=== PATIENT | male | born 1955 | race Caucasian/White ===

== ENCOUNTER → 2017-01-03 | Outpatient (CLI) | payer MEDICARE, OTHER ==
[~2017-01-03] MED LIST: ALPR.5T PO; CHOL200035 PO; CIPR500T78 PO; LISI10TA PO; MELO-195 PO; METO25TA PO; THYR60TA4 PO
--- NOTE | 2017-01-03 09:55 | Diagnostic Imaging Report ---
EXAMINATION: DEXA scan. INDICATION: Osteopenia. TECHNIQUE: Bone mineral density estimated based on dual energy radiography over the lumbar spine and femoral necks, was performed. FINDINGS: The lumbar spine could not be measured due to fusion hardware. The T score over the left femoral neck is -1.1 and on the right side is -1.4. The mean is -1.2 and this is similar to the 2012 exam measurements. IMPRESSION: Osteopenia. Dictated by: Dictated on workstation # [id number]
== END ==
LOC: RAD 08:12
DX: M85.812 Other specified disorders of bone density and structure, left shoulder (principal)
CPT/HCPCS: 77080

== ENCOUNTER → 2017-02-08 | Outpatient (CLI) | payer MEDICARE, OTHER ==
[~2017-02-08] VITALS: Ht 175.3 cm; Wt 96.6 kg
[~2017-02-08] MED LIST changes: +ZOLEDRONATE 5 MG/100 ML (RECLAST) BTL IV ONE
[2017-02-08 14:07] VITALS: BP 135/84
== END ==
LOC: SDC 13:03
DX: M81.0 Age-related osteoporosis without current pathological fracture (principal)
CPT/HCPCS: 96365

== ENCOUNTER → 2017-03-21 | Outpatient (CLI) | payer OTHER, MEDICARE ==
[~2017-03-21] MED LIST changes: -ZOLEDRONATE 5 MG/100 ML (RECLAST) BTL IV ONE
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
== END ==
LOC: RAD 08:14
PROVIDERS: ATTEND Nurse Practitioner Family
DX: M50.222 Other cervical disc displacement at C5-C6 level (principal); M47.812 Spondylosis without myelopathy or radiculopathy, cervical region; M48.02 Spinal stenosis, cervical region; Z98.1 Arthrodesis status
CPT/HCPCS: 72141

== ENCOUNTER → 2017-03-28 | Outpatient (CLI) | payer MEDICARE, OTHER ==
--- NOTE | 2017-03-28 10:15 | Diagnostic Imaging Report ---
INDICATION: Cough and weight loss. COMPARISON: None. FINDINGS: Two views of the chest are obtained. Heart size is normal. The pulmonary vessels appear unremarkable. There is no pneumothorax mediastinal widening or pleural fluid demonstrated. The lungs are clear. There are postoperative changes in the cervical spine. IMPRESSION: No radiographic evidence of an acute cardiopulmonary abnormality. Dictated by: Dictated on workstation # [id number]
== END ==
LOC: RAD 08:52
DX: R63.4 Abnormal weight loss (principal); R05 Cough
CPT/HCPCS: 71020

== ENCOUNTER → 2017-03-29 | Outpatient (CLI) | payer OTHER, MEDICARE ==
--- NOTE | 2017-03-29 16:40 | Diagnostic Imaging Report ---
PROCEDURE: CT cervical spine without contrast. TECHNIQUE: Multiple contiguous axial images were obtained through the cervical spine without the use of intravenous contrast. Sagittal and coronal reformations were then performed. INDICATION: Followup cervical fusion. FINDINGS: Sagittal and coronal reformatted images show good alignment of the vertebral bodies. Body heights are well-maintained throughout the cervical region. There is anterior plate fusing at C6-C7 level. The bone screws and plate appear intact. No evidence of hardware loosening. Interbody graft is present. There does appear to be at least partial bony fusion of the vertebral bodies. There is mild narrowing of the C5-C6 disc space. Facets show good alignment. Atlanto-axial joint is in good alignment. IMPRESSION: 1. Anterior cervical fusion with interbody bone graft at C6-C7. Hardware appears intact. There does appear to be at least partial solid bony fusion. Dictated by: Dictated on workstation # [id number]
== END ==
LOC: RAD 15:50
PROVIDERS: ATTEND Orthopaedic Surgery Orthopaedic Surgery of the Spine
DX: Z98.1 Arthrodesis status (principal); M54.2 Cervicalgia
CPT/HCPCS: 72125

== ENCOUNTER → 2017-03-29 | Outpatient (CLI) | payer OTHER, MEDICARE ==
--- NOTE | 2017-03-29 17:03 | Diagnostic Imaging Report ---
PROCEDURE: MRI lumbar spine. TECHNIQUE: Multiplanar, multisequence MRI of the lumbar spine was performed without contrast. INDICATION: Chronic back pain. History of multiple surgeries with fusion and laminectomy at the lumbar spine. COMPARISON: 09/13/2015. FINDINGS: Anterior fusion L3 through L5. Alignment good. Body heights are well maintained. The marrow signal appears normal. The facets show good alignment. There is decompressive laminectomy from L3 through S1 which shows no evidence of central canal stenosis. No evidence of recurrent disc herniations. No significant encroachment noted upon the lateral recess or neural foramen. L2-L3: There is considerable facet and ligamentous hypertrophy with narrowing of the disc space with desiccation and broad-based disc bulge. This is causing moderate to moderately severe encroachment upon the lateral recesses bilaterally. There is no focal disc herniation or extruded component. L1-L2: Disc shows normal contour. Facets show mild hypertrophy. No significant encroachment noted. The conus medullaris appears normal. The surrounding soft tissues appear normal. IMPRESSION: 1. Postoperative residue from L3 through S1 with anterior fusion and posterior laminectomy. Overall appearance is unchanged. 2. There is progressive facet and ligamentous hypertrophy at L2-L3 with associated broad-based disc bulge causing [id number] encroachment upon the lateral recesses now. Dictated by: Dictated on workstation # [id number]
== END ==
LOC: RAD 15:55
DX: M51.26 Other intervertebral disc displacement, lumbar region (principal); Z98.1 Arthrodesis status
CPT/HCPCS: 72148

== ENCOUNTER → 2017-11-28 | Outpatient (CLI) | payer MEDICARE, OTHER ==
--- NOTE | 2017-11-28 09:16 | Diagnostic Imaging Report ---
PROCEDURE: CT cervical spine without contrast. TECHNIQUE: Multiple contiguous axial images were obtained through the cervical spine without the use of intravenous contrast. Sagittal and coronal reformations were then performed. INDICATION: Numbness over the entire body. Patient has prior history of cervical spine surgeries. Comparison is made with prior CT of the cervical spine performed on 03/29/2017. Since prior study patient has had further cervical spine surgery. There is now postop changes of ACDF with anterior plates and screws extending from C5 through C7. There appears to be a separate C5-C6 plate and C6-C7 plate. No hardware fracture or loosening is identified. There is straightening. Vertebral body heights are maintained. No fractures are seen. Bony canal appears to be patent. There is neuroforaminal stenosis due to uncovertebral joint degenerative change at the C6-7 level, greatest on the left. All other levels are unremarkable. The odontoid is intact IMPRESSION: Postop changes ACDF C5 through C7. There is bilateral neuroforaminal stenosis C6-C7 level, greatest on the left. No central canal stenosis is seen. No acute bony abnormalities detected. No hardware fracture or loosening is identified. Dictated by: Dictated on workstation # [id number]
--- NOTE | 2017-11-28 09:34 | Diagnostic Imaging Report ---
PROCEDURE: MR imaging cervical spine without contrast. TECHNIQUE: Multiplanar, multisequence MR imaging of the cervical spine was performed without contrast. INDICATION: Neck pain with bilateral arm and hand numbness. Patient underwent cervical spine surgery six months ago as well as in 2014. Comparison is made with prior MRI of the cervical spine on 03/21/2017. Curvature and alignment of the cervical spine is normal. There are postop changes of ACDF with anterior plate and screws extending from C5 through C7. Hardware does produce moderate amount of artifact. The marrow signal intensity is unremarkable. The signal intensity throughout cervical cord is normal. Previously noted large central disc extrusion at the C5-C6 level is no longer appreciated. C2-C3: No definite central canal or neural foraminal stenosis is detected. C3-C4: A very mild central canal narrowing is seen, similar to prior study. Neural foramina are patent. C4-C5: Very mild central canal narrowing is seen. Neural foramina are patent. No disc protrusion is identified. C5-C6: Previously noted disc is no longer protruding. There is mild central canal narrowing. Neural foramina are patent. C6-C7: Uncovertebral joint degenerative change does result in neural foraminal narrowing on the left. There appears to be mild neural foramen narrowing on the right. No significant central canal narrowing is seen. C7-T1: Unremarkable. IMPRESSION: Postop changes ACDF C5 through C7. Previously noted large disc protrusion/extrusion at C5-C6 is no longer present. There is some mild generalized cervical spinal canal narrowing, similar to the examination from March 2017. There also appears to be neural foraminal narrowing at C6-C7 level, as described. Dictated by: Dictated on workstation # [id number]
== END ==
LOC: RAD 08:05
PROVIDERS: ATTEND Physician Assistant
DX: M48.02 Spinal stenosis, cervical region (principal); M47.812 Spondylosis without myelopathy or radiculopathy, cervical region; Z98.1 Arthrodesis status
CPT/HCPCS: 72125; 72141

== ENCOUNTER 2018-03-23 16:09 | Emergency (ER) | payer MEDICARE, OTHER ==
[~2018-03-23] VITALS: Ht 175.3 cm; Wt 96.2 kg
--- OUTSIDE RECORDS SUMMARY | 2018-03-23 16:14 | XMS REPORT | Continuity of Care Document ---
Author Author [facility] Organization [facility] Address Unknown Phone Unavailable Allergies Active Description Code Type Severity Reaction Onset Reported/Identified Relationship to Patient Clinical Status Yes No Known Drug Allergies [id number] Drug Allergy Unknown N/A 12/31/2011 Medications There is no data. Problems Date Dx Coded Attending Type Code Diagnosis Diagnosed By 12/31/2011 Ot 244.9 HYPOTHYROIDISM NOS 12/31/2011 Ot 401.9 HYPERTENSION NOS 12/31/2011 Ot V76.51 SCREEN MAL NEOP-COLON 02/07/2012 Ot 401.9 HYPERTENSION NOS 02/07/2012 Ot 782.0 SKIN SENSATION DISTURB 11/29/2013 FER MONET, ABILIO Gutierrez Ot 599.0 URIN TRACT INFECTION NOS 11/29/2013 FER MONET, ABILIO Gutierrez Ot 788.20 RETENTION OF URINE NOS 11/29/2013 FER MONET, ABILIO Gutierrez Ot 789.09 ABDOMINAL PAIN, OTHER SPECIFIED SITE 09/15/2014 CELINA MONET, VAIBHAV Hess Ot 723.0 09/15/2014 CELINA MONET, VAIBHAV Hess Ot 721.2 09/17/2014 CELINA MONET, VAIBHAV Hess Ot 723.0 09/17/2014 CELINA MONET, VAIBHAV Hess Ot 721.2 12/31/2014 LYNNE MONET, GALILEA Jha Ot 722.93 05/04/2015 Ot 715.31 05/04/2015 Ot 733.90 05/04/2015 Ot V58.69 08/05/2015 Ot 733.90 08/05/2015 Ot V58.69 08/05/2015 Ot V72.84 08/05/2015 JUDAH MONET, BENJI Jha Ot 596.54 08/05/2015 CELINA MONET, VAIBHAV Hess Ot 723.0 08/05/2015 VAIBHAV PATRICK MD Ot 721.2 08/05/2015 VAIBHAV SERRANO DO Ot 723.0 08/05/2015 LYNNE MONET, GALILEA Jha Ot 722.93 08/05/2015 SAEID RESTREPO INVENTORY ACCOUNTANT Ot R10.32 08/11/2015 SAEID RESTREPO INVENTORY ACCOUNTANT Ot R41.0 08/11/2015 SAEID RESTREPO INVENTORY ACCOUNTANT Ot R51 08/11/2015 SAEID RESTREPO INVENTORY ACCOUNTANT Ot S09.90XA 08/11/2015 SAEID RESTREPO INVENTORY ACCOUNTANT Ot S19.9XXA 08/11/2015 SAEID RESTREPO INVENTORY ACCOUNTANT Ot V99.XXXA 08/19/2015 SAEID RESTREPO INVENTORY ACCOUNTANT Ot R10.32 09/08/2015 SAEID RESTREPO INVENTORY ACCOUNTANT Ot R10.32 09/13/2015 SAEID RESTREPO INVENTORY ACCOUNTANT Ot R41.0 09/13/2015 SAEID RESTREPO INVENTORY ACCOUNTANT Ot R51 09/13/2015 SAEID RESTREPO INVENTORY ACCOUNTANT Ot S09.90XA 09/13/2015 SAEID RESTREPO INVENTORY ACCOUNTANT Ot S19.9XXA 09/13/2015 SAEID RESTREPO APRN Ot V99.XXXA 09/13/2015 Ot 733.90 09/13/2015 Ot V58.69 09/13/2015 Ot V72.84 09/13/2015 JUDAH MONET, BENJI Jha Ot 596.54 09/13/2015 CELINA MONET, VAIBHAV Hess Ot 723.0 09/13/2015 CELINA MONET, VAIBHAV Hess Ot 721.2 09/13/2015 MAGGIE LU, VAIBHAV Sterling Ot 723.0 09/13/2015 LYNNE MONET, GALILEA Jha Ot 722.93 09/13/2015 SAEID RESTREPO Man INVENTORY ACCOUNTANT Ot R10.32 09/13/2015 SAEID RESTREPO INVENTORY ACCOUNTANT Ot R41.0 09/13/2015 SAEID RESTREPO Man INVENTORY ACCOUNTANT Ot R51 09/13/2015 SAEID RESTREPO Man INVENTORY ACCOUNTANT Ot S09.90XA 09/13/2015 SAEID RESTREPO Man INVENTORY ACCOUNTANT Ot S19.9XXA 09/13/2015 SAEID RESTREPO INVENTORY ACCOUNTANT Ot V99.XXXA 10/18/2015 KHANH MONET, IDALMIS James Ot M48.06 10/26/2015 KHANH MONET, IDALMIS James Ot M48.06 10/27/2015 KAYE GINNADEN N INVENTORY ACCOUNTANT Ot R41.0 10/27/2015 SAEID RESTREPO INVENTORY ACCOUNTANT Ot R51 10/27/2015 SAEID RESTREPO APRN Ot S09.90XA 10/27/2015 SAEID RESTREPO APRN Ot S19.9XXA 10/27/2015 SAEID RESTREPO APRN Ot V99.XXXA 11/08/2015 SAEID RESTREPO APRN Ot R41.0 11/08/2015 SAEID RESTREPO APRN Ot R51 11/08/2015 SAEID RESTREPO APRN Ot S09.90XA 11/08/2015 SAEID RESTREPO APRN Ot S19.9XXA 11/08/2015 SAEID RESTREPO APRN Ot V99.XXXA 04/17/2016 Ot 733.90 BONE CARTILAGE DIS NOS 04/17/2016 Ot V58.69 OTH MED,LT, CURRENT USE 12/27/2016 SAEID RESTREPO APRN Ot R41.0 DISORIENTATION, UNSPECIFIED 12/27/2016 SAEID RESTREPO APRN Ot R51 HEADACHE 12/27/2016 SAEID RESTREPO APRN Ot S09.90XA UNSPECIFIED INJURY OF HEAD, INITIAL ENCO 12/27/2016 SAEID RESTREPO APRN Ot S19.9XXA UNSPECIFIED INJURY OF NECK, INITIAL ENCO 12/27/2016 SAEID RESTREPO APRN Ot V99.XXXA UNSPECIFIED TRANSPORT ACCIDENT, INITIAL 12/27/2016 KHANH MONET, IDALMIS James Ot M48.06 SPINAL STENOSIS, LUMBAR REGION 01/03/2017 Ot 733.90 BONE CARTILAGE DIS NOS 01/03/2017 Ot V58.69 OTH MED,LT, CURRENT USE 01/03/2017 Ot V72.84 EXAM PRE- OPERATIVE NOS 01/03/2017 JUDAH MONET, BENJI Jha Ot 596.54 NEUROGENIC BLADDER, NOT OTHERWISE SPECIF 01/03/2017 CELINA MONET, VAIBHAV Hess Ot 723.0 CERVICAL SPINAL STENOSIS 01/03/2017 CELINA MONET, VAIBHAV Hess Ot 721.2 THORACIC SPONDYLOSIS 01/03/2017 VAIBHAV SERRANO DO Ot 723.0 CERVICAL SPINAL STENOSIS 01/03/2017 LYNNE MONET, GALILEA Jha Ot 722.93 DISC DIS NEC/NOS-LUMBAR 01/03/2017 SAEID RESTREPO INVENTORY ACCOUNTANT Ot R10.32 LEFT LOWER QUADRANT PAIN 01/03/2017 SAEID RESTREPO INVENTORY ACCOUNTANT Ot R41.0 DISORIENTATION, UNSPECIFIED 01/03/2017 SAEID RESTREPO APRN Ot R51 HEADACHE 01/03/2017 SAEID RESTREPO APRN Ot S09.90XA UNSPECIFIED INJURY OF HEAD, INITIAL ENCO 01/03/2017 SAEID RESTREPO INVENTORY ACCOUNTANT Ot S19.9XXA UNSPECIFIED INJURY OF NECK, INITIAL ENCO 01/03/2017 SAEID RESTREPO INVENTORY ACCOUNTANT Ot V99.XXXA UNSPECIFIED TRANSPORT ACCIDENT, INITIAL 01/03/2017 KHANH MONET, IDALMIS James Ot M48.06 SPINAL STENOSIS, LUMBAR REGION 01/25/2017 JILLIAN MONET, LINDA Galeano Ot M85.812 OT DISRD OF BONE DENSITY AND STRUCTURE, 02/17/2017 JILLIAN MONET, LINDA Galeano Ot M81.0 AGE-RELATED OSTEOPOROSIS W/O CURRENT PAT 03/07/2017 LINDA WALSH MD Ot M81.0 AGE-RELATED OSTEOPOROSIS W/O CURRENT PAT 03/12/2017 JILLIAN MONET, LINDA Galeano Ot M81.0 AGE-RELATED OSTEOPOROSIS W/O CURRENT PAT 03/21/2017 SAEID RESTREPO INVENTORY ACCOUNTANT Ot R41.0 DISORIENTATION, UNSPECIFIED 03/21/2017 SAEID RESTREPO APRN Ot R51 HEADACHE 03/21/2017 SAEID RESTREPO APRN Ot S09.90XA UNSPECIFIED INJURY OF HEAD, INITIAL ENCO 03/21/2017 SAEID RESTREPO INVENTORY ACCOUNTANT Ot S19.9XXA UNSPECIFIED INJURY OF NECK, INITIAL ENCO 03/21/2017 SAEID RESTREPO APRN Ot V99.XXXA UNSPECIFIED TRANSPORT ACCIDENT, INITIAL 03/21/2017 KHANH MONET, IDALMIS James Ot M48.06 SPINAL STENOSIS, LUMBAR REGION 03/21/2017 JILLIAN MONET, LINDA Galeano Ot M85.812 OT DISRD OF BONE DENSITY AND STRUCTURE, 03/21/2017 JILLIAN MONET, LINDA Galeano Ot M81.0 AGE-RELATED OSTEOPOROSIS W/O CURRENT PAT 03/26/2017 SAEID RESTREPO APRN Ot M47.812 SPONDYLOSIS W/O MYELOPATHY OR RADICULOPA 03/26/2017 SAEID RESTREPO INVENTORY ACCOUNTANT Ot M48.02 SPINAL STENOSIS, CERVICAL REGION 03/26/2017 SAEID RESTREPO INVENTORY ACCOUNTANT Ot M50.222 OTHER CERVICAL DISC DISPLACEMENT AT C5-C 03/26/2017 SAEID RESTREPO APRN Ot Z98.1 ARTHRODESIS STATUS 04/02/2017 IDALMIS CASSIDY MD Ot M54.2 CERVICALGIA 04/02/2017 IDALMIS CASSIDY MD Ot Z98.1 ARTHRODESIS STATUS 04/02/2017 IDALMIS CASSIDY MD Ot M54.2 CERVICALGIA 04/02/2017 IDALMIS CASSIDY MD Ot Z98.1 ARTHRODESIS STATUS 04/02/2017 JILLIAN MONET, LINDA D Ot R05 COUGH 04/02/2017 JILLIAN MONET, LINDA D Ot R63.4 ABNORMAL WEIGHT LOSS 04/02/2017 IDALMIS CASSIDY MD Ot M54.2 CERVICALGIA 04/02/2017 IDALMIS CASSIDY MD Ot Z98.1 ARTHRODESIS STATUS 04/26/2017 JILLIAN MONET, LINDA D Ot R05 COUGH 04/26/2017 JILLIAN MONET, LINDA D Ot R63.4 ABNORMAL WEIGHT LOSS 04/27/2017 JILLIAN MONET, LINDA D Ot R05 COUGH 04/27/2017 JILLIAN MONET, LINDA D Ot R63.4 ABNORMAL WEIGHT LOSS 11/21/2017 IDALMIS CASSIDY MD Ot M54.2 CERVICALGIA 11/21/2017 IDALMIS CASSIDY MD Ot Z98.1 ARTHRODESIS STATUS 11/21/2017 JILLIAN MONET, LINDA Waleska Ot M51.26 OTHER INTERVERTEBRAL DISC DISPLACEMENT, 11/21/2017 LINDA WALSH MD Ot Z98.1 ARTHRODESIS STATUS 11/21/2017 SAEID RESTREPO APRN Ot M47.812 SPONDYLOSIS W/O MYELOPATHY OR RADICULOPA 11/21/2017 SAEID RESTREPO INVENTORY ACCOUNTANT Ot M48.02 SPINAL STENOSIS, CERVICAL REGION 11/21/2017 SAEID RESTREPO INVENTORY ACCOUNTANT Ot M50.222 OTHER CERVICAL DISC DISPLACEMENT AT C5-C 11/21/2017 SAEID RESTREPO INVENTORY ACCOUNTANT Ot Z98.1 ARTHRODESIS STATUS 11/29/2017 JEN ALVAREZ Ot M47.812 SPONDYLOSIS W/O MYELOPATHY OR RADICULOPA 11/29/2017 JEN ALVAREZ Ot M48.02 SPINAL STENOSIS, CERVICAL REGION 11/29/2017 JANETH NOONAN JEN Sterling Ot Z98.1 ARTHRODESIS STATUS 12/04/2017 JANETH NOONAN JEN Sterling Ot M47.812 SPONDYLOSIS W/O MYELOPATHY OR RADICULOPA 12/04/2017 JANETH NOONAN JEN Sterling Ot M48.02 SPINAL STENOSIS, CERVICAL REGION 12/04/2017 VOLIONEL NOONAN JEN Asher Ot Z98.1 ARTHRODESIS STATUS 12/19/2017 SAEID RESTREPO INVENTORY ACCOUNTANT Ot M47.812 SPONDYLOSIS W/O MYELOPATHY OR RADICULOPA 12/19/2017 SAEID RESTREPO INVENTORY ACCOUNTANT Ot M48.02 SPINAL STENOSIS, CERVICAL REGION 12/19/2017 SAEID RESTREPO INVENTORY ACCOUNTANT Ot M50.222 OTHER CERVICAL DISC DISPLACEMENT AT C5-C 12/19/2017 SAEID RESTREPO INVENTORY ACCOUNTANT Ot Z98.1 ARTHRODESIS STATUS 12/19/2017 KHANH MONET, IDALMIS James Ot M54.2 CERVICALGIA 12/19/2017 KHANH MONET, IDALMIS James Ot Z98.1 ARTHRODESIS STATUS 12/23/2017 JANETH NOONAN JEN Sterling Ot M47.812 SPONDYLOSIS W/O MYELOPATHY OR RADICULOPA 12/23/2017 JANETH NOONAN JEN Asher Ot M48.02 SPINAL STENOSIS, CERVICAL REGION 12/23/2017 JANETH NOONAN JEN Asher Ot Z98.1 ARTHRODESIS STATUS 12/24/2017 JANETH NOONAN JEN Sterling Ot M47.812 SPONDYLOSIS W/O MYELOPATHY OR RADICULOPA 12/24/2017 JANETH NOONAN JEN Asher Ot M48.02 SPINAL STENOSIS, CERVICAL REGION 12/24/2017 JANETH NOONAN JEN Sterling Ot Z98.1 ARTHRODESIS STATUS 01/13/2018 JILLIAN MONET, LINDA Galeano Ot L03.113 CELLULITIS OF RIGHT UPPER LIMB 01/13/2018 JILLIAN MONET, LINDA Galeano Ot T81.31XA DISRUPTION OF EXTERNAL OPERATION (SURGIC 01/15/2018 JILLIAN MONET, LINDA Galeano Ot L03.113 CELLULITIS OF RIGHT UPPER LIMB 01/15/2018 JILLIAN MONET, LINDA Galeano Ot T81.31XA DISRUPTION OF EXTERNAL OPERATION (SURGIC 01/31/2018 JILLIAN MONET, LINDA Galeano Ot L03.113 CELLULITIS OF RIGHT UPPER LIMB 01/31/2018 LINDA WALSH MD Ot T81.31XA DISRUPTION OF EXTERNAL OPERATION (SURGIC Procedures There is no data. Results Test Result Range Bacteria identification in isolate by anaerobe culture - 01/08/18 00:00 Bacteria identification in isolate by anaerobe culture NOANA NRG Gram stain microscopy - 01/08/18 00:00 Gram stain microscopy Moderate # gram positive cocci resembling Staph NRG Bacteria identification in wound by culture - 01/08/18 00:00 Bacteria identification in wound by culture [id number] NRG FREE TEXT EXTERNAL SENSITIVITY REPORTED 01/10/18 9:55 NRG QUANTITY OF GROWTH Isolated NRG MRSA AGAR MRSA isolated (Screening test for MRSA is positive) NRG CALL POSITIVES (F1 HELP) CALLED TO [place] 01/09 14:10 NRG Bacterial susceptibility panel - 01/08/18 00:00 Oxacillin susceptibility test by minimum inhibitory concentration > = NRG Gentamicin susceptibility test by minimum inhibitory concentration < = NRG Clindamycin susceptibility test by minimum inhibitory concentration <= NRG Erythromycin susceptibility test by minimum inhibitory concentration >= NRG Trimethoprim/sulfamethoxazole susceptibility test by minimum inhibitoryconcentration S NRG Vancomycin susceptibility test by minimum inhibitory concentration 1 NRG Levofloxacin susceptibility test by minimum inhibitory concentration 4 NRG Rifampin susceptibility test by minimum inhibitory concentration <= NRG Tetracycline susceptibility test by minimum inhibitory concentration <= NRG Ciprofloxacin susceptibility test by minimum inhibitory concentration R NRG Bacterial susceptibility panel - 01/08/18 00:00 Gentamicin susceptibility test by minimum inhibitory concentration < = NRG Trimethoprim/sulfamethoxazole susceptibility test by minimum inhibitoryconcentration <= NRG Tobramycin susceptibility test by minimum inhibitory concentration < = NRG Ceftriaxone susceptibility test by minimum inhibitory concentration 8 NRG Piperacillin/tazobactam susceptibility test by minimum inhibitory concentration <= NRG Ciprofloxacin susceptibility test by minimum inhibitory concentration <= NRG Meropenem susceptibility test by minimum inhibitory concentration < = NRG Encounters ACCT No. Visit Date/Time Discharge Status Pt. Type Provider Facility Loc./Unit Complaint [id number] 01/08/2018 11:49:00 01/08/2018 23:59:59 CLS Outpatient LINDA WALSH MD [facility] LABNPT WOUND C S, GRAM STAIN [id number] 11/28/2017 08:05:00 11/28/2017 23:59:59 CLS Outpatient JEN ALVAREZ [facility] RAD BACK PAIN [id number] 03/29/2017 15:55:00 03/29/2017 23:59:59 CLS Outpatient LINDA WALSH MD [facility] RAD LOW BACK PAIN [id number] 03/29/2017 15:50:00 03/29/2017 23:59:59 CLS Outpatient IDALMIS CASSIDY MD [facility] RAD CERVICALGIA [id number] 03/28/2017 08:52:00 03/28/2017 23:59:59 CLS Outpatient LINDA WALSH MD [facility] RAD R63.4 [id number] 03/21/2017 08:14:00 03/21/2017 23:59:59 CLS Outpatient SAEID RESTREPO APRN [facility] RAD NECK PAIN [id number] 02/08/2017 13:03:00 02/08/2017 23:59:59 CLS Outpatient LINDA WALSH MD [facility] SDC OSTEOPOROSIS [id number] 01/03/2017 08:12:00 01/03/2017 23:59:59 CLS Outpatient LINDA WALSH MD [facility] RAD M85.812 [id number] 09/13/2015 09:38:00 09/13/2015 23:59:59 CLS Outpatient IDALMIS CASSIDY MD [facility] RAD LUMBAR STENOSIS [id number] 08/05/2015 14:27:00 08/05/2015 23:59:59 CLS Outpatient SAEID RESTREPO APRN [facility] RAD NECK PAIN,CONFUSION [id number] 07/18/2015 09:39:00 07/18/2015 23:59:59 CLS Outpatient SAEID RESTREPO INVENTORY ACCOUNTANT [facility] RAD ABD PAIN [id number] 09/21/2014 09:05:00 09/21/2014 23:59:59 CLS Outpatient GALILEA BATISTA MD [facility] RAD RLO STENOSIS [id number] 09/16/2014 09:30:00 09/16/2014 23:59:59 CLS Outpatient HEARNDON DO, VAIBHAV L [facility] RAD CERVICAL RADICULOPATHY [id number] 11/29/2013 10:40:00 11/29/2013 14:19:00 DIS Emergency FER MONET, ABILIO Gutierrez [facility] ER L RIB PAIN [id number] 07/11/2013 15:14:00 07/11/2013 23:59:59 CLS Emergency [id number] 07/03/2013 08:07:00 07/03/2013 23:59:59 CLS Outpatient VAIBHAV PATRICK MD [facility] RAD THORACIC BACK PAIN [id number] 06/05/2013 08:17:00 06/05/2013 23:59:59 CLS Outpatient VAIBHAV PATRICK MD [facility] RAD NECK PAIN [id number] 02/16/2013 12:26:00 02/16/2013 23:59:59 CLS Outpatient JUDAH MONET, BENJI Jha [facility] RAD NEUROGENIC BLADDER [id number] 05/04/2015 12:25:00 Document Registration [id number] 02/07/2012 09:20:00 Document Registration [id number] 12/31/2011 06:37:00 Document Registration [id number] 12/26/2011 09:55:00 Document Registration [id number] 09/04/2010 10:23:00 Document Registration [email or web address] 09/21/2014 09:06:57 ACT Document Registration
--- OUTSIDE RECORDS SUMMARY | 2018-03-23 16:14 | XMS REPORT | Clinical Summary ---
Author Author [facility] Organization [facility] Address Unknown Phone Unavailable Care Team Providers Care Healthcare Management Name Role Phone Fernando Yen MD Unavailable Ruslan Mcguire DO Unavailable Jorje Martin MD PCP Lorna Macedo MD Unavailable Source Comments Some departments are not documenting in the electronic medical record. If you do not see the information that you expected, contact Release of Information in the Health Information Management department at [phone] for further assistance in locating additional records.[facility] Allergies No Known Allergies Current Medications Prescription Sig. Disp. Refills Start End Date Status Date benazepril (LOTENSIN) 20 Take 20 mg by mouth twice Active mg tablet daily. CALCIUM PO Take 1,000 mg by mouth Active daily. cholecalciferol (Vitamin Take 5,000 Units by mouth Active D3) (VITAMIN D-3) 1,000 daily. units tablet ALPRAZolam (XANAX) 0.5 mg Take 0.5 mg by mouth at Active tablet bedtime as needed. TESTOSTERONE (BULK) MISC Use as directed. Every 3 Active Weeks MULTIVITAMIN PO Take 1 Cap by mouth Active daily. VITAMIN B COMPLEX-100 IJ Inject to area(s) as Active directed. alfuzosin(+) (UROXATRAL) Take 1 Tab by mouth daily 30 Tab 6 02/12/20 Active 10 mg tabletIndications: after breakfast. 14 Neurogenic bladder, NOS gabapentin (NEURONTIN) Take 3 Caps by mouth 60 Cap 5 05/27/20 Active 300 mg capsule three times daily. 14 HYDROcodone/acetaminophen Take 1 Tab by mouth every Active (NORCO; VICODIN) 5-325 mg 4 hours as needed. tablet finasteride (PROSCAR) 5 Take 1 Tab by mouth 90 Tab 0 10/13/19 Active mg tablet daily. 15 baclofen (LIORESAL) 10 mg Take 10 mg by mouth three Active tablet times daily. docusate (COLACE) 100 mg Take 1 Cap by mouth twice 30 Cap 3 04/19/20 Active capsuleIndications: daily. 15 Constipation, unspecified constipation type sildenafil(+) (VIAGRA) Take 1 Tab by mouth as 6 Tab 0 04/19/20 Active 100 mg tabletIndications: Needed for Erectile 15 Erectile dysfunction, dysfunction. 30-60 min unspecified erectile prior to sexual activity dysfunction type Active Problems Problem Noted Date Erectile dysfunction 04/19/2015 Overview: He currently feels like he is able to get adequate erections, however they have become painful secondary to superficial thrombosis. Has been taking Viagra with good results. L ast Assessment & Plan: Plan- 1) Continue Viagra prn. Refill given 2) Treat superficial dorsal vein thrombosis Constipation 04/19/2015 Overview: Complains of chronic constipation. Does not take any medications for his bowels. Has a BM every 3-4 days and they are usually difficult to pass. L ast Assessment & Plan: Plan- 1) Start Colace 100mg BID 2) Eat 1 handful of prunes per day to stay regular Thrombosis of superficial vein of penis 04/19/2015 Overview: He currently feels like he is able to get adequate erections, however they have become painful secondary to a "rope-like" structure on the top of his penis. Unsure when this appeared, and does not remember anything traumatic occuring at the time. Non-tender when flaccid, however is painful with erections and penetration. No hx of STD, UTI, or other superficial clots. L ast Assessment & Plan: Superficial vein thrombosis of penis. Unknown etiology 1) Conservative measures with NSAIDs, warm compress 2) RTC in 2 months for follow-up Back pain 08/13/2013 Radiculopathy 08/13/2013 Osteopenia 06/16/2013 Cervical spinal stenosis 06/16/2013 Cervical radiculopathy 06/16/2013 Thoracic or lumbosacral neuritis or radiculitis, unspecified 04/09/2013 Neurogenic bladder, NOS 04/09/2013 Overview: Neurogenic bladder managed with flomax and finasteride. 02/11/14: change to alfusosin do to retrograde ejaculation, sample of viaricardoa L ast Assessment & Plan: Neurogenic bladder managed with flomax and finasteride. Due to retrograde ejaculation will change alpha michael. Will continue finasteride and reiterated need to [facility] should he find it difficult to void. Plan: DC Flomax Script for Alfusosin Sample of Viagra RTC in 6 months Family History Medical History Relation Name Comments Diabetes Father Hypertension Father Relation Name Status Comments Father Social History Tobacco Use Types Packs/Day Years Used Date Former Smoker Cigarettes 0.25 10 Quit: 09/02/1979 Smokeless Tobacco: Never Used Alcohol Use Drinks/Week oz/Week Comments Yes 12 Cans of 7.2 Quit [id number] beer Sex Assigned at Date Recorded Not on file Last Filed Vital Signs Vital Sign Reading Time Taken Blood Pressure 136/84 04/19/2015 11:07 AM CDT Pulse 80 08/12/2014 2:51 PM POULTRY INSPECTOR Temperature 36.9 C (98.4 F) 08/12/2014 1:02 PM POULTRY INSPECTOR Respiratory Rate - - Oxygen Saturation 95% 08/12/2014 1:02 PM POULTRY INSPECTOR Inhaled Oxygen - - Concentration Weight 98.6 kg (217 lb 6.4 oz) 04/19/2015 11:07 AM CDT Height 177.8 cm (5' 10") 04/19/2015 11:07 AM CDT Body Mass Index 31.19 04/19/2015 11:07 AM CDT Plan of Treatment Health Maintenance Due Date Last Done Comments HEPATITIS C SCREENING 1954 PHYSICAL (COMPREHENSIVE) 1961 EXAM PERTUSSIS VACCINE 1965 HIV SCREENING 1969 TETANUS VACCINE 1971 COLORECTAL CANCER 2004 SCREENING SHINGLES RECOMBINANT 2004 VACCINE (1 of 2) INFLUENZA VACCINE 06/02/2018 Results Not on filefrom Last 3 Months
[2018-03-23] MEDS ORDERED: NS IV 1000 ML 1,000 ML IV SCH (16:31)
[2018-03-23 16:38] LABS: BILIRUBIN,URINE NEGATIVE (NEGATIVE); CLARITY,URINE CLEAR; COLOR,URINE YELLOW; GLUCOSE, URINE (UA) NEGATIVE (NEGATIVE); KETONES,URINE NEGATIVE (NEGATIVE); LEUKOCYTE ESTERASE ,URINE NEGATIVE (NEGATIVE); NITRITE,URINE NEGATIVE (NEGATIVE); PH,URINE 6.5 (5-9); PROTEIN,URINE NEGATIVE (NEGATIVE); UROBILINOGEN,URINE NORMAL (NORMAL)
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
[2018-03-23] MEDS ORDERED: KETOROLAC 30 MG/ML VIAL IVP ONE (16:45)
[2018-03-23 16:52] LABS: BACTERIA,URINE NEGATIVE /HPF; RBC,URINE RARE /HPF; SQUAMOUS EPITHELIAL CELL,UR RARE /HPF; WBC,URINE 0-2 /HPF
[2018-03-23 16:54] LABS: BASOPHILS % (AUTO) 1 % (0-10); EOSINOPHILS # (AUTO) 0.1 10^3/uL (0.0-0.3); EOSINOPHILS % (AUTO) 1 % (0-10); HEMATOCRIT 47 % (40-54); LYMPHOCYTES # (AUTO) 0.8 X 10^3 (1.0-4.0); LYMPHOCYTES % (AUTO) 21 % (12-44); MEAN CORPUSCULAR HEMOGLOBIN 33 PG (25-34); MEAN CORPUSCULAR HGB CONC 36 G/DL (32-36); MEAN CORPUSCULAR VOLUME 92 FL (80-99); MEAN PLATELET VOLUME 9.1 FL (7.4-10.4); MONOCYTES # (AUTO) 0.6 X 10^3 (0.0-1.0); MONOCYTES % (AUTO) 15 % (0-12); NEUTROPHILS # (AUTO) 2.3 X 10^3 (1.8-7.8); NEUTROPHILS % (AUTO) 62 % (42-75); PLATELET COUNT 102 10^3/uL (130-400); RED BLOOD COUNT 5.12 10^6/uL (4.35-5.85); RED CELL DISTRIBUTION WIDTH 12.7 % (10.0-14.5); WHITE BLOOD COUNT 3.7 10^3/uL (4.3-11.0)
[2018-03-23 16:58] LABS: AMPHETAMINE SCREEN, URINE NEGATIVE (NEGATIVE); BARBITURATE SCREEN URINE NEGATIVE (NEGATIVE); BENZODIAZEPINES SCREEN URINE POSITIVE (NEGATIVE); CANNABINOID SCREEN, URINE NEGATIVE (NEGATIVE); COCAINE SCREEN URINE NEGATIVE (NEGATIVE); METHADONE STAT NEGATIVE (NEGATIVE); METHAMPHETAMINE SCREEN URINE S NEGATIVE (NEGATIVE); OPIATE SCREEN URINE POSITIVE (NEGATIVE); OXYCODONE STAT NEGATIVE (NEGATIVE); PROPOXYPHENE STAT NEGATIVE (NEGATIVE); TRICYCLIC ANTIDEPRESSANTS SCRE NEGATIVE (NEGATIVE)
[2018-03-23 17:17] LABS: ALANINE AMINOTRANSFERASE 62 U/L (0-55); ALBUMIN 4.2 GM/DL (3.2-4.5); ALKALINE PHOSPHATASE 62 U/L (40-136); BILIRUBIN,TOTAL 0.6 MG/DL (0.1-1.0); BUN/CREATININE RATIO 19; CARBON DIOXIDE 21 MMOL/L (21-32); CHLORIDE 105 MMOL/L (98-107); CREATINE KINASE 112 U/L (30-200); CREATININE SERUM 0.95 MG/DL (0.60-1.30); GFR ESTIMATED > 60; GLUCOSE 118 MG/DL (70-105); MAGNESIUM 2.5 MG/DL (1.8-2.4); SODIUM 137 MMOL/L (135-145); TOTAL PROTEIN 6.8 GM/DL (6.4-8.2)
[2018-03-23] MEDS ORDERED: DOXY100C2 PO (17:49)
[2018-03-23] MEDS ORDERED: DOXYCYCLINE 100 MG (VIBRAMYCIN) TABLET PO STA (17:57)
[2018-03-23 18:04] VITALS: BP 133/97
== END 2018-03-23 18:04 | disposition home or self-care (01) ==
LOC: EDUNIT# 16:09 → ER 16:10
DX: M13.0 Polyarthritis, unspecified (principal); R54 Age-related physical debility; I10 Essential (primary) hypertension; F41.9 Anxiety disorder, unspecified; F17.200 Nicotine dependence, unspecified, uncomplicated
CPT/HCPCS: 36415; 80053; 80306; 81000; 82550; 83735; 85025; 85652; 86141; 86618; 86666; 86668; 86757; 96374

== ENCOUNTER → 2018-08-27 | Outpatient (CLI) | payer MEDICARE, OTHER ==
[~2018-08-27] MED LIST changes: +DOXY100C2 PO
--- NOTE | 2018-08-27 09:57 | Diagnostic Imaging Report ---
PROCEDURE: MR imaging cervical spine without contrast. TECHNIQUE: Multiplanar, multisequence MR imaging of the cervical spine was performed without contrast. INDICATION: Headache at the base of skull as well as neck pain and bilateral arm and leg numbness. Comparison is made with prior MRI of the cervical spine performed 11/28/2017. The curvature and alignment is normal. Postop changes of ACDF C5 through C7 is again seen. Vertebral body marrow signal is normal. Cervical cord shows normal signal intensity. C2-C3: No central canal or neural foraminal narrowing is detected. C3-C4: Minimal central canal narrowing is seen. Neural foramina are patent. C4-C5: No significant central canal or neural foraminal narrowing is seen. C5-C6: Mild central canal narrowing is noted with endplate osteophytes indenting the ventral thecal sac. Neural foramina are patent. C6-C7: Moderate left and mild right neural foramina is again noted. Central canal is patent. C7-T1: No significant central canal or neural foraminal narrowing is seen. IMPRESSION: Postop changes C5 through C7 ACDF with mild central canal and neuroforaminal narrowing described level by level above. This is similar to the examination from 11/28/2017. Dictated by: Dictated on workstation # [id number]
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
== END ==
LOC: RAD 07:32
PROVIDERS: ATTEND Physician Assistant
DX: M48.061 Spinal stenosis, lumbar region without neurogenic claudication (principal); M48.02 Spinal stenosis, cervical region; M25.78 Osteophyte, vertebrae; Z98.1 Arthrodesis status; Z87.828 Personal history of other (healed) physical injury and trauma
CPT/HCPCS: 72141; 72148

== ENCOUNTER → 2018-09-23 | Outpatient (CLI) | payer MEDICARE, OTHER ==
--- NOTE | 2018-09-23 15:11 | Diagnostic Imaging Report ---
INDICATION: Chronic back pain. TECHNIQUE: Multiplanar, multisequence imaging of the thoracic spine was performed without contrast. COMPARISON: Correlation is made with prior MRI of the thoracic spine from 07/03/2013. FINDINGS: Curvature and alignment of the thoracic spine is normal. Vertebral body heights are fairly well maintained with probably slight loss of stature involving the T8 and T7 vertebral bodies. However, this appears to be chronic. No abnormal marrow edema or geographic marrow lesion is seen apart from occasional benign hemangiolipomas within several thoracic vertebral bodies. There is some generalized thoracic disc desiccation compatible with degenerative change. The thoracic spinal cord demonstrates normal homogeneous signal intensity and normal morphology. T3-4 level shows slight indentation upon the ventral thecal sac by right paracentral disc/osteophyte. No central canal narrowing is seen however. Remainder of the levels show the canal to be widely patent. The neural foramina appear to be patent. The paraspinous tissues are unremarkable. IMPRESSION: Mild generalized thoracic spondylosis. No acute compression fracture, central canal or neural foraminal stenosis is identified. Dictated by: Dictated on workstation # [id number]
== END ==
LOC: RAD 13:57
PROVIDERS: ATTEND Orthopaedic Surgery Orthopaedic Surgery of the Spine
DX: M47.814 Spondylosis without myelopathy or radiculopathy, thoracic region (principal)
CPT/HCPCS: 72146

== ENCOUNTER 2020-04-24 12:50 | Day surgery (SDC) | payer MEDICARE, OTHER ==
[~2020-04-24] VITALS: Ht 176 cm; Wt 100.0 kg
[2020-04-24] MEDS ORDERED: ASPIRIN 81 MG CHEW (CHILDREN'S ASA) ONE (12:55)
[2020-04-24] MEDS ORDERED: FAMOTIDINE 20 MG (PEPCID) TABLET PO STA (13:05)
[2020-04-24] MEDS ORDERED: ANTACID SUSP 30 ML UDC (MYLANTA) PO ONE (13:15)
[2020-04-24] MEDS ORDERED: LIDOCAINE 2% VISCOUS 15 ML UDC PO ONE (13:15)
[2020-04-24] MEDS ORDERED: ASPIRIN 81 MG CHEW (CHILDREN'S ASA) PO ONE (13:15)
[2020-04-24 13:19] LABS: BASOPHILS % (AUTO) 1 % (0-10); EOSINOPHILS # (AUTO) 0.3 10^3/uL (0.0-0.3); EOSINOPHILS % (AUTO) 4 % (0-10); HEMATOCRIT 45 % (40-54); LYMPHOCYTES % (AUTO) 31 % (12-44); MEAN CORPUSCULAR HEMOGLOBIN 33 PG (25-34); MEAN CORPUSCULAR HGB CONC 35 G/DL (32-36); MEAN CORPUSCULAR VOLUME 93 FL (80-99); MEAN PLATELET VOLUME 9.1 FL (7.4-10.4); MONOCYTES # (AUTO) 0.7 X 10^3 (0.0-1.0); MONOCYTES % (AUTO) 10 % (0-12); NEUTROPHILS # (AUTO) 3.5 X 10^3 (1.8-7.8); NEUTROPHILS % (AUTO) 54 % (42-75); PLATELET COUNT 202 10^3/uL (130-400); WHITE BLOOD COUNT 6.5 10^3/uL (4.3-11.0)
--- NOTE | 2020-04-24 13:20 | ED Chest Pain ---
General Chief Complaint: Chest Pain Stated Complaint: INTERMITTENT CP/WEAKNESS Nursing Triage Note: Patient reports intermittent chest pain for a few days Nursing Sepsis Screen: No Definite Risk Source: patient Exam Limitations: no limitations History of Present Illness Date Seen by Provider: Apr 24, 2020 Time Seen by Provider: 12:52 Initial Comments Patient presents ER by private conveyance with chief complaint for the past week to 10 days he's been having intermittent chest pains usually brought on by exertion but sometimes also by food. He started having some significant chest pain last night but it went away after about 1-2 hours. This morning around 10:00 in the morning he said his chest pain hit him again and so he took an extra tablet of lisinopril. He also try to couple Tums but the pain did not go away. As he was walking in from the parking lot this pain started to come back on but it had pretty much subsided by the time he got to the emergency room bed. The pain is substernal, mid chest not reproducible to direct palpation or deep inspiration. He's never felt pain similar to this before. He has no history of coronary disease or aortic disease. He started smoking again 3 years ago and before that had several decades history of smoking. Does not use alcohol or recreational drugs. He is not having any nausea or radiation of his pain. He has a family history of his dad was in his early 60s when he had his first heart attack. The patient has hypertension and for the past week or 2 Dr. Walsh and he has been working on controlling his blood pressure by increasing his lisinopril. The patient says his cholesterol is normal. He does not have diabetes. He does have obesity. He denies a history of COPD, wheezing or shortness of air. He's not having a cough or fevers or chills. He's had multiple surgeries on his back as well as appendectomy and does occasionally have difficulties passing a bowel movement for upwards of a week. He says he thinks he has an internal hernia responsible for this but it has always spontaneously resolved. He takes meloxicam daily for his chronic osteoarthritis. Allergies and Home Medications Allergies Coded Allergies: No Known Drug Allergies (Unverified , 12/31/11) Home Medications Alprazolam 0.5 Mg Tablet, 1 TAB PO HS PRN, (Reported) Cholecalciferol (Vitamin D3) 2,000 Unit Capsule, 5,000 UNIT PO DAILY, (Reported) Ciprofloxacin HCl 500 Mg Tablet, 500 MG PO BID Prescribed by: ABILIO DURANT on 11/29/13 1402 Doxycycline Hyclate 100 Mg Capsule, 100 MG PO BID WITH MEALS Prescribed by: SUZI ROD on 03/23/18 1749 Lisinopril 10 Mg Tablet, 10 MG PO BID, (Reported) Meloxicam 15 Mg Tablet, 1 EACH PO DAILY PRN, (Reported) Thyroid 60 Mg Tablet, 30 MG PO DAILY, (Reported) Patient Home Medication List Home Medication List Reviewed: Yes Review of Systems Review of Systems Constitutional: No chills, No malaise EENTM: No Blurred Vision, No Double Vision Respiratory: Denies Cough, Denies Shortness of Air Cardiovascular: See HPI, Chest Pain; Denies Edema Gastrointestinal: Denies Abdomen Distended, Denies Abdominal Pain, Denies Constipated, Denies Diarrhea, Denies Nausea, Denies Vomiting Genitourinary: Denies Burning, Denies Discharge Musculoskeletal: back pain (chronic); No joint pain All Other Systems Reviewed Negative Unless Noted: Yes Past Cwsbzpo-Fbbmzf-Yumnuh Hx Patient Social History Alcohol Use: Denies Use Recreational Drug Use: No Smoking Status: Current Everyday Smoker Type Used: Cigarettes (2/3 ppd) Recent Foreign Travel: No Contact w/Someone Who Travel: No Recent Infectious Disease Expo: No Recent Hopitalizations: No Immunizations Up To Date Tetanus Booster (TDap): Unknown Date of Influenza Vaccine: Sep 03, 2013 Seasonal Allergies Seasonal Allergies: No Past Medical History Surgeries: Yes (BACK SURGERY) Respiratory: No Cardiac: Yes Hypertension Neurological: No Genitourinary: No Gastrointestinal: No Musculoskeletal: Yes Chronic Back Pain, Spasms Endocrine: No Cancer: No Psychosocial: Yes Anxiety Integumentary: No Blood Disorders: No Physical Exam Vital Signs Vital Signs - First Documented 04/24/20 12:54 Pulse 77 Resp 12 B/P (MAP) 201/123 (149) Pulse Ox 97 Capillary Refill : Less Than 3 Seconds Height, Weight, BMI Height: 5'9.00" Weight: 212lbs. 0.0oz. 96.519995vr; 32.00 BMI Method:Stated General Appearance: WD/WN, Anxious HEENT: PERRL/EOMI, Pharynx Normal, Moist Mucous Membranes Neck: Full Range of Motion, Normal Inspection, Supple Respiratory: Chest Non Tender, Lungs Clear, Normal Breath Sounds, No Accessory Muscle Use, No Respiratory Distress Cardiovascular: Regular Rate, Rhythm, No Edema, No JVD, No Murmur, Normal Peripheral Pulses Gastrointestinal: Normal Bowel Sounds, Non Tender, Soft Extremity: Normal Capillary Refill, Normal Inspection, Non Tender, No Pedal Edema Neurologic/Psychiatric: Alert, Oriented x3, No Motor/Sensory Deficits, Normal Mood/Affect Skin: Normal Color, Warm/Dry Progress/Results/Core Measures Results/Orders Lab Results Laboratory Tests Test 04/24/20 12:55 Range/Units White Blood Count 6.5 4.3-11.0 10^3/uL Red Blood Count 4.84 4.35-5.85 10^6/uL Hemoglobin 16.0 13.3-17.7 G/DL Hematocrit 45 40-54 % Mean Corpuscular Volume 93 80-99 FL Mean Corpuscular Hemoglobin 33 25-34 PG Mean Corpuscular Hemoglobin Concent 35 32-36 G/DL Red Cell Distribution Width 13.0 10.0-14.5 % Platelet Count 202 130-400 10^3/uL Mean Platelet Volume 9.1 7.4-10.4 FL Neutrophils (%) (Auto) 54 42-75 % Lymphocytes (%) (Auto) 31 12-44 % Monocytes (%) (Auto) 10 0-12 % Eosinophils (%) (Auto) 4 0-10 % Basophils (%) (Auto) 1 0-10 % Neutrophils # (Auto) 3.5 1.8-7.8 X 10^3 Lymphocytes # (Auto) 2.0 1.0-4.0 X 10^3 Monocytes # (Auto) 0.7 0.0-1.0 X 10^3 Eosinophils # (Auto) 0.3 0.0-0.3 10^3/uL Basophils # (Auto) 0.0 0.0-0.1 10^3/uL Prothrombin Time 12.9 12.2-14.7 SEC INR Comment 0.9 0.8-1.4 Activated Partial Thromboplast Time 31 24-35 SEC Sodium Level 142 135-145 MMOL/L Potassium Level 4.0 3.6-5.0 MMOL/L Chloride Level 105 98-107 MMOL/L Carbon Dioxide Level 23 21-32 MMOL/L Anion Gap 14 5-14 MMOL/L Blood Urea Nitrogen 16 7-18 MG/DL Creatinine 1.03 0.60-1.30 MG/DL Estimat Glomerular Filtration Rate > 60 BUN/Creatinine Ratio 16 Glucose Level 128 H 70-105 MG/DL Calcium Level 9.6 8.5-10.1 MG/DL Corrected Calcium 9.3 8.5-10.1 MG/DL Magnesium Level 2.2 1.6-2.4 MG/DL Total Bilirubin 0.7 0.1-1.0 MG/DL Aspartate Amino Transf (AST/SGOT) 40 H 5-34 U/L Alanine Aminotransferase (ALT/SGPT) 64 H 0-55 U/L Alkaline Phosphatase 50 40-136 U/L Myoglobin 66.0 10.0-92.0 NG/ML Troponin I 0.246 H <0.028 NG/ML Total Protein 7.2 6.4-8.2 GM/DL Albumin 4.4 3.2-4.5 GM/DL Lipase 23 8-78 U/L My Orders Orders - SUZI ROD Aspirin Chewable Tablet (Baby Aspirin Ch (04/24/20 12:55) Cbc With Automated Diff (04/24/20 13:05) Magnesium (04/24/20 13:05) Chest 1 View, Ap/Pa Only (04/24/20 13:05) Ekg Tracing (04/24/20 13:05) Comprehensive Metabolic Panel (04/24/20 13:05) Myoglobin Serum (04/24/20 13:05) Protime With Inr (04/24/20 13:05) Partial Thromboplastin Time (04/24/20 13:05) O2 (04/24/20 13:05) Monitor-Rhythm Ecg Trace Only (04/24/20 13:05) Lipid Panel (04/25/20 06:00) Ed Iv/Invasive Line Start (04/24/20 13:05) Lipase (04/24/20 13:05) Troponin I (04/24/20 13:05) Aspirin Chewable Tablet (Baby Aspirin Ch (04/24/20 13:15) Lidocaine 2% Viscous 15 Ml (Xylocaine Vi (04/24/20 13:15) Famotidine Tablet (Pepcid Tablet) (04/24/20 13:05) Antacid Suspension (Mylanta Suspension (04/24/20 13:15) Ekg Tracing (04/24/20 13:26) Heparin Drip 48390 Unit/500ml (Heparin (04/24/20 14:13) Heparin (Bolus Per Protocol) (Heparin (B (04/24/20 14:15) Partial Thromboplastin Time (04/24/20 14:13) Protime With Inr (04/24/20 14:13) Cbc No Diff (04/24/20 14:13) Cbc No Diff (04/27/20 05:00) Cbc No Diff (04/30/20 05:00) Platelet Count (04/25/20 05:00) Platelet Count (04/26/20 05:00) Platelet Count (04/27/20 05:00) Platelet Count (04/28/20 05:00) Platelet Count (04/29/20 05:00) Platelet Count (04/30/20 05:00) Platelet Count (05/01/20 05:00) Platelet Count (05/02/20 05:00) Platelet Count (05/03/20 05:00) Platelet Count (05/04/20 05:00) Partial Thromboplastin Time (04/24/20 18:13) Protime With Inr (04/27/20 05:00) Initiate Heparin Acs Protocol (04/24/20 14:13) Clopidogrel Tablet (Plavix Tablet) (04/24/20 14:15) Nitroglycerin Ointment (Nitrobid Ointme (04/24/20 14:15) Medications Given in ED Current Medications Medications Dose Ordered Sig/Ren Route Start Time Stop Time Status Last Admin Dose Admin Al Hydrox/Mg Hydrox/Simethicone 30 ml ONCE ONCE PO 04/24/20 13:15 04/24/20 13:16 DC 04/24/20 13:16 30 ML Aspirin 81 mg STK-MED ONCE .ROUTE 04/24/20 12:55 04/24/20 13:00 DC 04/24/20 13:06 324 MG Lidocaine HCl 15 ml ONCE ONCE PO 04/24/20 13:15 04/24/20 13:16 DC 04/24/20 13:16 15 ML Vital Signs/I&O 04/24/20 12:54 Pulse 77 Resp 12 B/P (MAP) 201/123 (149) Pulse Ox 97 Blood Pressure Mean: 149 Progress Progress Note : Time: 13:20 Progress Note Top differential would include coronary, GERD/esophagitis, gallbladder. He is not tender over his right upper quadrant abdomen or his epigastric region to palpation. He has several risk factors and even with negative troponins would have a heart score of 6. We did give him aspirin but since he's no longer having any pressure or pain in his chest we'll try a GI cocktail first. He is not having shortness of air, hypoxia, or hemoptysis and his well score for pulmonary embolism is 0 with a 1 point on the Perc rule. He is not having any wheezing to suggest bronchospasm nor cough and fever to suggest pneumonia but we will obtain a chest x-ray. Smoking and high blood pressure and also be a significant risk factor for aortic aneurysm. CT of the abdomen pelvis in 2014 shows a normal caliber abdominal aorta. Recent thoracic MRI from this year the aortic arch and ascending thoracic aorta could be visualized and did not demonstrate significant aneurysm. Wells score for PE: 0.0 points. Low risk group: 1.3% chance of PE in an ED population. His blood pressure is significantly elevated at 200/115 on arrival. Apparently t his has been an issue over the past week that he and his primary care doctor had been working on. Our goal would be to watch this and see if it will come down spontaneously and in the first 20 minutes of his visit it is already down to 180/114. Initial ECG Impression Date: Apr 24, 2020 Initial ECG Impression Time: 12:54 Initial ECG Rate: 73 Initial ECG Rhythm: Normal Sinus Initial ECG Intervals: Normal Initial ECG Impression: Normal, Nonspecific Changes Initial ECG Comparisson: No Previous ECG Available Comment Normal sinus rhythm with anterior leads V1, V2 and V3 having about half a block of elevation in the ST segments of uncertain clinical significance. EKG : EKG Time: 13:52 Rate: 63 Rhythm: Normal Sinus Intervals: Normal ECG Impression: Normal, Nonspecific Changes Comment Stable half block of ST elevation in the anterior leads V1, V2 and V3. Sinus rhythm. No other changes. Diagnostic Imaging Diagonstic Imaging: Xray Plain Films/CT/US/NM/MRI: chest Comments NAME: HARRISIMTIAZ N [facility] REC#: [id number] PT STATUS: REG ER : 1955 PHYSICIAN: SUZI ROD MD ADMIT DATE: 04/24/20/ER Signed Date of Exam:04/24/20 CHEST 1 VIEW, AP/PA ONLY PATIENT HISTORY: Chest pain. TECHNIQUE: Single frontal view of the chest. COMPARISON: 03/28/2017 FINDINGS: The lung volumes are normal. No focal consolidation is seen. No large pleural effusion or pneumothorax is seen. The cardiomediastinal silhouette is normal in size and contour. No acute osseous abnormality is seen. IMPRESSION: No acute pulmonary abnormality seen. Dictated by: Dictated on workstation # [id number] Dict: 04/24/20 1340 Trans: 04/24/20 1343 [id number] Interpreted by: JAY SOLORZANO MD Electronically signed by: JAY SOLORZANO MD 04/24/20 1343 Reviewed: Reviewed by Me Departure Communication (Admissions) Time/Spoke to Admitting Phy: 02:[address] Alcala, cardiology and he would like to take the patient straight to catheter lab. He would like us to give the patient aspirin, Plavix and initiate a heparin drip. Impression Primary Impression: Acute coronary syndrome with high troponin Additional Impression: NSTEMI (non-ST elevated myocardial infarction) Disposition: ADMITTED INPATIENT Condition: Stable Admissions Decision to Admit Reason: Admit from ER (General) Decision to Admit/Date: Apr 24, 2020 Time/Decision to Admit Time: 02:00 Departure-Patient Inst. Referrals: LINDA WALSH MD (PCP/Family) Primary Care Physician SUZI ROD Apr 24, 2020 13:20
[2020-04-24 13:24] LABS: INR 0.9 (0.8-1.4); PROTHROMBIN TIME PATIENT 12.9 SEC (12.2-14.7)
[2020-04-24 13:40] LABS: ALANINE AMINOTRANSFERASE 64 U/L (0-55); ALBUMIN 4.4 GM/DL (3.2-4.5); ALKALINE PHOSPHATASE 50 U/L (40-136); BILIRUBIN,TOTAL 0.7 MG/DL (0.1-1.0); BUN/CREATININE RATIO 16; CALCIUM 9.6 MG/DL (8.5-10.1); CARBON DIOXIDE 23 MMOL/L (21-32); CHLORIDE 105 MMOL/L (98-107); CREATININE SERUM 1.03 MG/DL (0.60-1.30); GFR ESTIMATED > 60; GLUCOSE 128 MG/DL (70-105); LIPASE 23 U/L (8-78); MAGNESIUM 2.2 MG/DL (1.6-2.4); SODIUM 142 MMOL/L (135-145); TOTAL PROTEIN 7.2 GM/DL (6.4-8.2)
--- NOTE | 2020-04-24 13:42 | Diagnostic Imaging Report ---
PATIENT HISTORY: Chest pain. TECHNIQUE: Single frontal view of the chest. COMPARISON: 03/28/2017 FINDINGS: The lung volumes are normal. No focal consolidation is seen. No large pleural effusion or pneumothorax is seen. The cardiomediastinal silhouette is normal in size and contour. No acute osseous abnormality is seen. IMPRESSION: No acute pulmonary abnormality seen. Dictated by: Dictated on workstation # [id number]
[2020-04-24] MEDS ORDERED: HEParin DRIP 25000 UNIT/500ML 500 ML IV SCH (14:13)
[2020-04-24] MEDS ORDERED: HEParin 1000 UNIT/ML (10ML VIAL) FOR BOLUS IV PRN (14:15)
[2020-04-24] MEDS ORDERED: NITROGLYCERIN 2% OINT 1 GM UNIT DOSE PACKET TOP ONE (14:15)
[2020-04-24] MEDS ORDERED: CLOPIDOGREL 300 MG (PLAVIX) TABLET PO ONE (14:15)
[2020-04-24] MEDS ORDERED: NS IV 1000 ML 1,000 ML ONE (14:25)
[2020-04-24] MEDS ORDERED: fentaNYL INJECTION 100 MCG/2 ML AMP ONE (14:25)
[2020-04-24] MEDS ORDERED: MIDAZOLAM 5 MG/5 ML (VERSED) VIAL ONE (14:25)
[2020-04-24] MEDS ORDERED: HEParin (CATH LAB) 2,000 ML IV ONE (14:25)
[2020-04-24] MEDS ORDERED: LIDOCAINE 1% INJ 20 ML 20 ML VIAL ONE (14:25)
--- NOTE | 2020-04-24 15:02 | Cardiology History & Physical ---
HPI-Cardiology Cardiology H&P Date of Admission 04/24/20 Primary Care Physician Aden Camarillo MD Attending Physician Clif Alcala MD, MA FACP [facility] CCDS Consulting Physician [facility] CC: Chest pain HPI: 64 yo man with 2-3 days of recurrent chest pain, lasting up 20 min, pressure or burning in the mid chest without radiation and without other symptoms, moderate in intensity, worse with exertion, improved with rest, occurring on a daily basis. Has chronic, slowly progressive, mild exertional shortness of breath. Denies fever or chills or leg swelling Review of Systems-Cardiology Review of Systems Constitutional: No weight loss, No weight gain Eyes: No vision change Ears/Nose/Throat: No ear discharge, No nasal drainage, No recent hearing loss Respiratory: As described under HPI Cardiovascular: As described under HPI Gastrointestinal: No diarrhea, No nausea, No vomiting Genitourinary: No dysuria, No hematuria, No urine frequency changes Musculoskeletal: back pain (chronic, severe, requiring chronic use of analgesics) Skin: No rash, No ulcerations Psychiatric/Neurological: No seizure, No focal weakness, No syncope Hematologic: No bleeding abnormalities All Other Systems Reviewed Negative Unless Noted: Yes [id number] Hx Patient Social History Alcohol Use: Denies Use Recreational Drug Use: No Smoking Status: Current Everyday Smoker Type Used: Cigarettes (2/3 ppd) Recent Foreign Travel: No Recent Infectious Disease Expo: No Hospitalization with Isolation: Denies Immunizations Up To Date Tetanus Booster (TDap): Unknown Date of Influenza Vaccine: Sep 03, 2013 Past Medical History PMH As described under Assessment. Family Medical History Family Medical History: Reports fam h/o early CAD (father) Allergies and Home Medications Allergies Coded Allergies: No Known Drug Allergies (Unverified , 12/31/11) Home Medications Alprazolam 0.5 Mg Tablet, 1 TAB PO HS PRN, (Reported) Cholecalciferol (Vitamin D3) 2,000 Unit Capsule, 5,000 UNIT PO DAILY, (Reported) Ciprofloxacin HCl 500 Mg Tablet, 500 MG PO BID Prescribed by: ABILIO DURANT on 11/29/13 1402 Doxycycline Hyclate 100 Mg Capsule, 100 MG PO BID WITH MEALS Prescribed by: SUZI ROD on 03/23/18 1749 Lisinopril 10 Mg Tablet, 10 MG PO BID, (Reported) Meloxicam 15 Mg Tablet, 1 EACH PO DAILY PRN, (Reported) Thyroid 60 Mg Tablet, 30 MG PO DAILY, (Reported) Patient Home Medication List Home Medication List Reviewed: Yes Physical Exam-Cardiology Physical Exam Vital Signs/I&O 04/24/20 12:54 Pulse 77 Resp 12 B/P (MAP) 201/123 (149) Pulse Ox 97 Capillary Refill : Less Than 3 Seconds Constitutional: AAO x 3, well-developed, well-nourished HEENT: EOMI, hearing is well preserved; No xanthelasmas are seen Neck: carotid pulses are 2 + bilaterally, with good upstrokes Respiratory: No accessory muscle use; other (good bilateral air entry) Cardiovascular: regular rate-rhythm, S1 and S2, systolic murmur (soft LINDSAY at card base) Gastrointestinal: No tender; soft; No guarding, No rebound; audible bowel sounds Extremities: No clubbing, No cyanosis, No significant edema Neurologic/Psychiatric: oriented x 3, other (moves all limbs equally) Skin: No rash on exposed areas, No ulcerations on exposed areas Data Review Labs Laboratory Tests 04/24/20 12:55: White Blood Count 6.5, Red Blood Count 4.84, Hemoglobin 16.0, Hematocrit 45, Mean Corpuscular Volume 93, Mean Corpuscular Hemoglobin 33, Mean Corpuscular Hemoglobin Concent 35, Red Cell Distribution Width 13.0, Platelet Count 202, Mean Platelet Volume 9.1, Neutrophils (%) (Auto) 54, Lymphocytes (%) (Auto) 31, Monocytes (%) (Auto) 10, Eosinophils (%) (Auto) 4, Basophils (%) (Auto) 1, Neutrophils # (Auto) 3.5, Lymphocytes # (Auto) 2.0, Monocytes # (Auto) 0.7, Eosinophils # (Auto) 0.3, Basophils # (Auto) 0.0, Prothrombin Time 12.9, INR Comment 0.9, Activated Partial Thromboplast Time 31, Sodium Level 142, Potassium Level 4.0, Chloride Level 105, Carbon Dioxide Level 23, Anion Gap 14, Blood Urea Nitrogen 16, Creatinine 1.03, Estimat Glomerular Filtration Rate > 60, BUN/Creatinine Ratio 16, Glucose Level 128H, Calcium Level 9.6, Corrected Calcium 9.3, Magnesium Level 2.2, Total Bilirubin 0.7, Aspartate Amino Transf (AST/SGOT) 40H, Alanine Aminotransferase (ALT/SGPT) 64H, Alkaline Phosphatase 50, Myoglobin 66.0, Troponin I 0.246H, Total Protein 7.2, Albumin 4.4, Lipase 23 Laboratory Tests 04/24/20 12:55 A/P-Cardiology Assessment/Admission Diagnosis Ac NSTEMI Uncontrolled hypertension Chronic tobacco use Chronic back pain Admission Status: Observation Discussion and Recomendations * Due to ongoing, unstable symptoms, we recommend urgent cath with possible ad hoc cor intervention. We discussed the rationale, procedure, risks, benefits, and potential complications of this and answered questions. He understands and wishes to proceed * We advised immediate and complete smoking cessation * Further recs to be based on the results of CLIF Rodriguez MD FACP FAC CCDS Apr 24, 2020 15:02
[2020-04-24] MEDS ORDERED: meTOprolol 5 MG/5 ML (LOPRESSOR) VIAL ONE ×2 (15:20→15:31)
[2020-04-24] MEDS ORDERED: ENALAPRILAT 1.25 MG/1 ML (VASOTEC) 1 ML VIAL IV ONE (15:20)
[2020-04-24] MEDS ORDERED: amLODIPine 5 MG (NORVASC) TAB ONE (15:35)
[2020-04-24] MEDS ORDERED: meTOprolol SUCCINATE 100 MG (TOPROL XL) TAB PO ONE (16:00)
[2020-04-24] MEDS ORDERED: ACETAMINOPHEN 325 MG TABLET PO PRN (16:00)
[2020-04-24] MEDS ORDERED: oxyCODONE/APAP 5/325MG (PERCOCET 5) TABLET PO PRN (16:00)
[2020-04-24] MEDS ORDERED: ENOXAPARIN 40 MG/0.4 ML (LOVENOX) SYR SC SCH (16:00)
[2020-04-24] MEDS ORDERED: NITROGLYCERIN 0.4 MG SL TABS BTL 25'S SL PRN (16:00)
[2020-04-24 16:03] VITALS: BP 151/92
--- NOTE | 2020-04-24 16:06 | Cardiology Discharge Summary ---
Diagnosis/Chief Complaint Date of Admission 04/24/20 Date of Discharge 04/24/20 Admission Diagnosis Ac NSTEMI Uncontrolled hypertension Chronic tobacco use Chronic back pain Final/Discharge Diagnosis Ac NSTEMI. Card cath of 04/24/20 shows multivessel CAD, LVEDP 11 mmHg, and LVEF 45-50% (apical hypokinesis) Uncontrolled hypertension Chronic tobacco use Chronic back pain Chief Complaint/HPI Chief Complaint/HPI CC: Chest pain HPI: 64 yo man with 2-3 days of recurrent chest pain, lasting up 20 min, pressure or burning in the mid chest without radiation and without other symptoms, moderate in intensity, worse with exertion, improved with rest, occurring on a daily basis. Has chronic, slowly progressive, mild exertional shortness of breath. Denies fever or chills or leg swelling HOSP COURSE Cath showed multivessel CAD. CABG appears to be the best treatment option. We spoke with Mr De Dios and have referred to Dr Rashid of the [facility] with whom I spoke on the phone and who has kindly accepted the patient in transfer. Patient has no chest pain and is clinically stable at the time of this note Discharge Summary Hospital Course Pending Labs Laboratory Tests 04/24/20 12:55: White Blood Count 6.5, Red Blood Count 4.84, Hemoglobin 16.0, Hematocrit 45, Mean Corpuscular Volume 93, Mean Corpuscular Hemoglobin 33, Mean Corpuscular Hemoglobin Concent 35, Red Cell Distribution Width 13.0, Platelet Count 202, Mean Platelet Volume 9.1, Neutrophils (%) (Auto) 54, Lymphocytes (%) (Auto) 31, Monocytes (%) (Auto) 10, Eosinophils (%) (Auto) 4, Basophils (%) (Auto) 1, Neutrophils # (Auto) 3.5, Lymphocytes # (Auto) 2.0, Monocytes # (Auto) 0.7, Eosinophils # (Auto) 0.3, Basophils # (Auto) 0.0, Prothrombin Time 12.9, INR Comment 0.9, Activated Partial Thromboplast Time 31, Sodium Level 142, Potassium Level 4.0, Chloride Level 105, Carbon Dioxide Level 23, Anion Gap 14, Blood Urea Nitrogen 16, Creatinine 1.03, Estimat Glomerular Filtration Rate > 60, BUN/Creatinine Ratio 16, Glucose Level 128, Calcium Level 9.6, Corrected Calcium 9.3, Magnesium Level 2.2, Total Bilirubin 0.7, Aspartate Amino Transf (AST/SGOT) 40, Alanine Aminotransferase (ALT/SGPT) 64, Alkaline Phosphatase 50, Myoglobin 6 6.0, Troponin I 0.246, Total Protein 7.2, Albumin 4.4, Lipase 23 Discussion & Recommendations Home Medications Reviewed patient Home Medication Reconciliation performed by pharmacy medication reconciliations pump house technician and/or nursing. Patients Allergies have been reviewed. Discharge Home Medications: Reviewed and agree with Discharge Medication list on patient's Discharge Instruction sheet Clinical Quality Measures AMI/AHF: ASA po Prior to arrival: DARIEL Martinez MD FACP FACC CCDS Apr 24, 2020 16:06
--- NOTE | 2020-04-24 17:46 | NUR ---
PATIENT ARRIVED TO FLOOR BY ENGINE RESEARCH ENGINEER RN'S AT 1555, BEDSIDE REPORT RECEIVED FROM JO VALDEZ ET TERRELL SITE CHECKED. THIS RN THEN CALLED REPORT TO DIANA ROBERTS, TO ASSUME CARE OF PATIENT POST TRANSFER FROM THIS HOSPITAL. EMS WAS CONTACTED FOR NEED FOR TRANSPORT. PATIENT LEFT THIS FACILITY AT 1638 VIA ER COT. SEE CATH/PROCEDURE SHEET FOR DOCUMENTATION REGARDING POST CATH. PATIENT LEFT WITH PERSONAL BELONGINGS.
[2020-04-24] MEDS ORDERED: NITROGLYCERIN 2% OINT 1 GM UNIT DOSE PACKET TOP SCH (18:00)
--- NOTE | 2020-04-24 20:22 | CARDIAC CATHETERIZATION ---
DATE OF SERVICE: 04/24/2020 CARDIAC CATHETERIZATION REPORT The patient is a 64-year-old man with coronary artery disease risk factors of hypertension and smoking cigarettes. He came in with chest discomfort and troponin was minimally elevated, suggestive of acute non-ST elevation myocardial infarction. He has had frequent symptoms in the last several days. We recommended urgent cardiac catheterization. Informed consent was obtained. DESCRIPTION OF PROCEDURE: He was brought to the cardiac catheterization laboratory. The right groin was prepared and draped in the usual sterile fashion. Lidocaine 1% was used for local anesthesia. Modified Seldinger technique was used to advance a 6-Danish sheath in the right femoral artery. A 6-Danish JL3.5 catheter was used for left coronary angiography. A 6-Danish JR4 catheter was used for right coronary angiography. A 6-Danish pigtail catheter was used for left heart catheterization and left ventricular angiography. Angiography of the right femoral artery was carried out through the sheath. Mynx was used to achieve hemostasis. He tolerated the procedure well. HEMODYNAMICS: Left ventricular end-diastolic pressure following coronary angiography was 11 mmHg. There is no significant pressure gradient on pullback across the aortic valve. Ascending aortic pressure was 177/98 with a mean 129 mmHg. LEFT VENTRICULAR ANGIOGRAPHY: Left ventricular angiography was carried out in the right anterior oblique projection. There is apical hypokinesis. Left ventricular ejection fraction is fairly well preserved. Left ventricular ejection fraction estimated to be 45 to 50%. CORONARY ANGIOGRAPHY: Left main coronary artery does not exhibit significant obstructive disease. Left anterior descending artery has a long stenosis in its proximal and mid portions that also involves the origin of the first and second diagonal branches. There is stenosis up to 95%. The left circumflex artery has multiple 90% stenosis after the origin of the second obtuse marginal branch. The second obtuse marginal branch has 70% proximal stenosis. The right coronary artery is dominant and has diffuse disease with multiple stenoses of up to 70% to 80% in the proximal and distal portions. CONCLUSIONS: 1. Multivessel coronary artery disease that includes a long 90% stenosis in the proximal and mid LAD (including origin of the first and second diagonal branches), 70% stenosis in the proximal portion of the second obtuse marginal branch, up to 90% stenosis in the distal left circumflex, and 70% to 80% stenoses in the proximal and distal right coronary. 2. Apical hypokinesis. 3. Global left ventricular systolic function is fairly well preserved and left ventricular ejection fraction estimated to be 45 to 50%. 4. Normal left ventricular end-diastolic pressure. DISCUSSION AND RECOMMENDATIONS: Based on results of the study, coronary artery bypass surgery appears to be the best treatment option. We discussed this with the patient and we called Dr. Ospina of the cardiovascular surgical service at [facility] in [place], [place]. The case was discussed. Dr. Ospina has kindly accepted the patient in transfer. Arrangements are being made at the time of this dictation. Job ID: [id number] DocumentID: [id number] Dictated Date: 04/24/2020 15:44:56 Thrill Performer Date: 04/24/2020 20:22:09 Dictated By: DARIEL KWONG MD, MA, FACP, FACC, MTDD
[2020-04-25] MEDS ORDERED: amLODIPine 10 MG (NORVASC) TAB PO SCH (09:00)
[2020-04-25] MEDS ORDERED: meTOprolol SUCCINATE 100 MG (TOPROL XL) TAB PO SCH (09:00)
[2020-04-25] MEDS ORDERED: ASPIRIN 81 MG CHEW (CHILDREN'S ASA) PO SCH (09:00)
[2020-04-25] MEDS ORDERED: CLOPIDOGREL 75 MG (PLAVIX) TABLET PO SCH (09:00)
== END 2020-04-24 16:38 | disposition short-term general hospital (02) ==
LOC: EDUNIT# 12:50 → ER 12:51 → CATH 14:47 → ICU 15:54 → CATH 16:38
PROVIDERS: ATTEND Internal Medicine Cardiovascular Disease
DX: I21.4 Non-ST elevation (NSTEMI) myocardial infarction (principal); I25.10 Atherosclerotic heart disease of native coronary artery without angina pectoris; I10 Essential (primary) hypertension; M54.9 Dorsalgia, unspecified; G89.29 Other chronic pain; F17.210 Nicotine dependence, cigarettes, uncomplicated; Z82.49 Family history of ischemic heart disease and other diseases of the circulatory system; Z79.899 Other long term (current) drug therapy; M19.91 Primary osteoarthritis, unspecified site; F41.9 Anxiety disorder, unspecified
CPT/HCPCS: 71045; 80053; 83690; 83735; 83874; 84484; 85025; 85610; 85730; 93005; 93041; 93458; 99284; C1760; C1894; 36415

== ENCOUNTER → 2020-07-09 | Outpatient (CLI) | payer MEDICARE, OTHER | LOC: LAB 14:31 | PROVIDERS: ATTEND Internal Medicine Cardiovascular Disease | DX: I25.10 Atherosclerotic heart disease of native coronary artery without angina pectoris (principal); I10 Essential (primary) hypertension; E66.9 Obesity, unspecified; Z95.1 Presence of aortocoronary bypass graft; Z72.0 Tobacco use | CPT/HCPCS: 36415; 80061; 84443 ==

== ENCOUNTER → 2020-11-07 | Outpatient (CLI) | payer MEDICARE, OTHER | LOC: CARD 13:00 | PROVIDERS: ATTEND Internal Medicine Cardiovascular Disease | DX: I25.5 Ischemic cardiomyopathy (principal); I51.7 Cardiomegaly | CPT/HCPCS: 93306 ==

== ENCOUNTER 2022-03-24 19:49 | Emergency (ER) | payer MEDICARE, OTHER ==
[~2022-03-24] VITALS: Ht 175.3 cm; Wt 100.0 kg
[~2022-03-24 19:49] MED LIST changes: -DOXY100C2 PO; +DOXY100C5 PO
--- NOTE | 2022-03-24 20:39 | ED General ---
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 NOW HE IS HAVING AN "OILY STOOL". Source of Information: Patient Exam Limitations: No Limitations History of Present Illness Date Seen by Provider: Mar 24, 2022 Time Seen by Provider: 20:35 Initial Comments Patient is a 66-year-old male who presents ED for concern for contaminated wound to his face. Patient states yesterday he fell through the floor while working on the bathroom floor hitting a sewage line. The suture line broke when he hit it with his face. Resulted in a right nares bleed and abrasions to the face upper lip, lower lip. Bleeding controlled. States he had some greenish mucousy stool today. Concern for contaminated wound. Patient not up-to-date his tetanus. Denies any facial pain or dental pain. Patient denies losing consciousness, neck pain, back pain, chest pain or shortness of breath. Allergies and Home Medications Allergies Coded Allergies: No Known Drug Allergies (Unverified , 12/31/11) Patient Home Medication List Home Medication List Reviewed: Yes Alprazolam (Xanax) 0.5 Mg Tablet, 1 TAB PO HS PRN, (Reported) Entered as Reported by: RHINA GONZALEZ on 02/07/12 0935 Cholecalciferol (Vitamin D3) (Vitamin D3) 2,000 Unit Capsule, 5,000 UNIT PO DAILY, (Reported) Entered as Reported by: RHINA GONZALEZ on 02/07/12 0936 Ciprofloxacin HCl (Cipro) 500 Mg Tablet, 500 MG PO BID Prescribed by: ABILIO DURANT on 11/29/13 1402 Clindamycin HCl (Clindamycin HCl) 300 Mg Capsule, 300 MG PO TID Prescribed by: SARAN OCONNELL on 03/24/222047 Doxycycline Hyclate (Doxycycline Hyclate) 100 Mg Capsule, 100 MG PO BID WITH MEALS Prescribed by: SUZI ROD on 03/23/18 1749 Levofloxacin (Levofloxacin) 750 Mg Tablet, 750 MG PO DAILY Prescribed by: SARAN OCONNELL on 03/24/222047 Lisinopril (Prinivil) 10 Mg Tablet, 10 MG PO BID, (Reported) Entered as Reported by: TIFFANY RODRIGUEZ on 12/31/11 0719 Meloxicam (Meloxicam) 15 Mg Tablet, 1 EACH PO DAILY PRN, (Reported) Entered as Reported by: RHINA GONZALEZ on 02/07/12 09 Thyroid (Thyroid ([place])) 60 Mg Tablet, 30 MG PO DAILY, (Reported) Entered as Reported by: RHINA GONZALEZ on 02/07/12 09 Review of Systems Review of Systems Constitutional: No chills, No diaphoresis EENTM: No ear pain, No blurred vision Respiratory: No cough Cardiovascular: No chest pain Gastrointestinal: No abdominal pain, No diarrhea, No nausea, No vomiting Genitourinary: No decreased output, No discharge Musculoskeletal: back pain, joint pain Skin: change in color, change in hair/nails All Other Systems Reviewed Negative Unless Noted: Yes Past Aqellvm-Hzcypf-Wkxgxq Hx Patient Social History Tobacco Use?: Yes Smoking Status: Current Everyday Smoker Use of E-Cig and/or Vaping dev: Yes E-Cig or Vaping type used: Nicotine Substance use?: No Alcohol Use?: Yes Alcohol type: Beer Alcohol Frequency: Daily Immunizations Up To Date Tetanus Booster (TDap): Unknown Seasonal Allergies Seasonal Allergies: No Past Medical History Surgeries: Yes (BACK SURGERY) Respiratory: No Cardiac: Yes Hypertension Neurological: No Genitourinary: No Gastrointestinal: No Musculoskeletal: Yes Chronic Back Pain, Spasms Endocrine: No Cancer: No Psychosocial: Yes Anxiety Integumentary: No Blood Disorders: No Physical Exam Vital Signs Vital Signs - First Documented 03/24/22 19:59 Temp 36.9 Pulse 84 Resp 16 B/P (MAP) 179/104 (129) Pulse Ox 95 O2 Delivery Room Air Capillary Refill : Less Than 3 Seconds Height, Weight, BMI Height: 5'9.00" Weight: 212lbs. 0.0oz. 96.552322hv; 32.00 BMI Method:Stated General Appearance: No Apparent Distress, WD/WN Eyes: Bilateral Eye Normal Inspection, Bilateral Eye PERRL, Bilateral Eye EOMI HEENT: Other (Abrasions to the upper lip, abrasion to the lower lip with mild crusting. Dried blood right nares. Mild swelling noted to the lower lip. No fluctuant mass) Neck: Full Range of Motion, Normal Inspection, Non Tender, Supple Respiratory: Chest Non Tender, Lungs Clear, Normal Breath Sounds, No Accessory Muscle Use Cardiovascular: Regular Rate, Rhythm, No Edema, No Gallop Gastrointestinal: Normal Bowel Sounds, No Pulsatile Mass Back: Normal Inspection, No CVA Tenderness Skin: Other (Swelling with few areas of abrasions to the face.) Progress/Results/Core Measures Suspected Sepsis SIRS Temperature: Pulse: 84 Respiratory Rate: 16 Blood Pressure 179 /104 Mean: 129 Results/Orders My Orders Orders - CRUZITO VENTURA Clindamycin Capsule (Cleocin Capsule) (03/24/22 20:48) Dipht,Pertuss(Acell),Tet Adult (Boostrix (03/24/22 21:00) Medications Given in ED Current Medications Medications Dose Ordered Sig/Ren Route Start Time Stop Time Status Last Admin Dose Admin Diphtheria/ Tetanus/Acell Pertussis 0.5 ml ONCE ONCE IM 03/24/22 21:00 03/24/22 21:01 DC 03/24/22 21:01 0.5 ML Vital Signs/I&O 03/24/22 03/24/22 19:59 21:04 Temp 36.9 36.9 Pulse 84 84 Resp 16 16 B/P (MAP) 179/104 (129) 179/104 Pulse Ox 95 95 O2 Delivery Room Air Room Air Capillary Refill : Less Than 3 Seconds Blood Pressure Mean: 129 Departure Communication (PCP) Patient has some abrasions to the face. He has no specific tenderness on palpation. Some swelling redness to the left lower lip. No fluctuant mass.. Patient Was given a tetanus shot. He is concerned for a greenish stool bowel movement today concern for contamination possible infection around his lip. Due to contaminated sewage patient will prescribe prophylactic antibiotics. Will discharge with clindamycin and fluoroquinolone. Discussed Neosporin. If any worsening redness or swelling to return back to ED. Impression Primary Impression: Skin abrasion Disposition: HOME, SELF-CARE Condition: Stable Departure-Patient Inst. Decision time for Depature: 20:39 Referrals: [facility] NO,LOCAL PHYSICIAN (PCP) Primary Care Physician Patient Instructions: Skin Abrasions Scripts Levofloxacin (Levofloxacin) 750 Mg Tablet 750 MG PO DAILY for 5 Days, #5 TAB Prov: CRUZITO VENTURA 03/24/22 Clindamycin HCl (Clindamycin HCl) 300 Mg Capsule 300 MG PO QID for 5 Days, #20 CAP Prov: CRUZITO VENTURA 03/24/22 CRUZITO VENTURA Mar 24, 2022 20:39
[2022-03-24] MEDS ORDERED: LEVO750T39 PO ×2 (20:48→21:16)
[2022-03-24] MEDS ORDERED: CLIN-144 PO ×2 (20:48→21:16)
[2022-03-24] MEDS ORDERED: CLINDAMYCIN 150 MG (CLEOCIN) CAP PO STA (20:48)
[2022-03-24] MEDS ORDERED: TETANUS,DIPTH,PERTUSS P/F (BOOSTRIX) 0.5 ML VIAL IM ONE (21:00)
[2022-03-24 21:04] VITALS: BP 179/104
== END 2022-03-24 21:04 | disposition home or self-care (01) ==
LOC: EDUNIT# 19:49 → ER 19:53
DX: S00.511A Abrasion of lip, initial encounter (principal); F17.290 Nicotine dependence, other tobacco product, uncomplicated; Z23 Encounter for immunization; W18.30XA Fall on same level, unspecified, initial encounter; W22.8XXA Striking against or struck by other objects, initial encounter; Y92.091 Bathroom in other non-institutional residence as the place of occurrence of the external cause; Y99.0 Civilian activity done for income or pay
CPT/HCPCS: 90715; 99284

== ENCOUNTER → 2022-05-09 | Outpatient (CLI) | payer MEDICARE, OTHER ==
[~2022-05-09] MED LIST changes: +CLIN-144 PO; +LEVO750T PO
--- NOTE | 2022-05-09 15:22 | Diagnostic Imaging Report ---
PROCEDURE: MR imaging cervical spine without contrast. TECHNIQUE: Multiplanar, multisequence MR imaging of the cervical spine was performed without contrast. DATE: May 09, 2022. COMPARISON: MRI cervical spine August 27, 2018. INDICATION: 66-year-old male, neck pain. FINDINGS: The alignment of the cervical spine is unremarkable. There is anterior spinal fusion hardware spanning C5-C7. There is no evidence of a diffuse marrow infiltrating or replacing process. There is no identified focal concerning bone lesion. There is no identified abnormal signal in the cervical spinal cord. The disc heights are well preserved. C2-C3: There is no disc bulge. There are mild bilateral uncovertebral and facet degenerative changes. There is mild bilateral foraminal narrowing. There is no spinal canal stenosis. C3-C4: There is no disc bulge. The uncovertebral and facet joints are unremarkable. There is no foraminal narrowing. There is no spinal canal stenosis. C4-C5: There is no disc bulge. There are mild right facet degenerative changes. There is no foraminal narrowing. There is mild to moderate spinal canal stenosis. C5-C6: There is a small posterior disc osteophyte complex. There are mild bilateral uncovertebral degenerative changes. There is mild to moderate bilateral foraminal narrowing. There is moderate spinal canal stenosis. C6-C7: There is no disc bulge. There are mild left uncovertebral degenerative changes. There is mild to moderate right and moderate to severe left foraminal narrowing. There is moderate spinal canal stenosis. C7-T1: There is no disc bulge. The uncovertebral and facet joints are unremarkable. There is no high-grade foraminal narrowing. There is no spinal canal stenosis. There is incidental note of an empty sella. IMPRESSION: 1. Anterior cervical spinal fusion hardware spanning C5-C7. 2. Multilevel disc, uncovertebral and facet degenerative changes of the cervical spine, as described in detail level by level above. Dictated by: Dictated on workstation # [id number]
--- NOTE | 2022-05-09 15:59 | Diagnostic Imaging Report ---
Exam: MRI thoracic spine without contrast. Date: May 09, 2022. Indication: 66-year-old male, mid back pain. Comparison: MR thoracic spine September 23, 2018. Technique: Multiple noncontrast MRI sequences of the thoracic spine were obtained. Findings: There is no evidence of a diffuse marrow infiltrating or replacing process. There is a T1 and T2 hyperintense lesion of the T9 vertebral body compatible with a benign vertebral body hemangioma. There is also a benign vertebral body hemangioma of T3. There is no identified acute compression deformity or fracture. There is an ill-defined area of T2 hyperintense signal in the anterior aspect of T6 which is technically indeterminate and measures approximately 12 mm in size. This is new since September 23, 2018. There are Modic endplate degenerative related changes adjacent to the T5-T6 disc space as well as additionally present at T6-T7. There are multiple small thoracolumbar Schmorl's nodes. There is incompletely imaged cervical spine hardware. There is a small right paracentral disc protrusion at T3-T4 without spinal stenosis. There is diffuse disc bulge at T10-T11 eccentric to the left. There appears to be mild narrowing of the left lateral recess. There is very mild spinal stenosis. Impression: 1. Ill-defined T2 hyperintense signal in the anterior aspect of the T6 vertebral body which potentially could reflect Modic endplate degenerative related changes though is technically nonspecific and an interval change since September 23, 2018. Further evaluation with CT thoracic spine without contrast to evaluate for possible bone lesion at this location is recommended. 2. Benign vertebral body hemangiomas at the levels of T8 and T9. 3. No evidence of a diffuse marrow infiltrating or replacing process. 4. Mild degenerative changes of the thoracic spine as above most notable at T10-T11 with mild left foraminal narrowing and very mild spinal stenosis at this level. 5. No identified compression deformity or fracture. Dictated by: Dictated on workstation # [id number]
== END ==
LOC: RAD 04-30 12:47
PROVIDERS: ATTEND Orthopaedic Surgery Orthopaedic Surgery of the Spine
DX: D18.09 Hemangioma of other sites (principal); M47.812 Spondylosis without myelopathy or radiculopathy, cervical region; M47.814 Spondylosis without myelopathy or radiculopathy, thoracic region; M48.02 Spinal stenosis, cervical region; Z98.1 Arthrodesis status
CPT/HCPCS: 72141; 72146

== ENCOUNTER → 2022-05-10 | Outpatient (CLI) | payer MEDICARE, OTHER ==
--- NOTE | 2022-05-10 16:23 | Diagnostic Imaging Report ---
PROCEDURE: MRI lumbar spine. TECHNIQUE: Multiplanar, multisequence MRI of the lumbar spine was performed without contrast. INDICATION: Low back pain. Prior lumbar spine surgery COMPARISON: Lumbar spine MRI without contrast 08/27/2018. CT lumbar spine without contrast 05/10/2022. FINDINGS: There are 5 lumbar-type vertebral bodies for the purposes of this report. Minimal anterolisthesis of L3 on L4 and retrolisthesis of L4 on L5. Modic type I degenerative endplate changes in the superior endplate of L2. Modic type II degenerative endplate changes in the inferior endplate of T12. Anterior interbody fusions and left-sided posterior instrumentation at L3-L5. Laminectomies at L2-L5. No fluid collections in the postoperative soft tissues. No abnormal signal in the conus which terminates at L1-L2. Normal morphology of the cauda equina. The visualized pelvis and paravertebral soft tissues demonstrate no acute findings. L1-L2: Annular disc bulging combines with ligamentous hypertrophy and facet arthropathy to result in moderate to severe spinal canal stenosis. This has significantly progressed since the 2018 exam. There is also moderate to severe bilateral neural foraminal narrowing, greater on the left. L2-L3: Annular disc bulging and facet arthropathy result in severe bilateral neural foraminal narrowing. No spinal canal stenosis. L3-L4: No spinal canal stenosis. [id number] bilateral neural foraminal narrowing. L4-L5: No spinal canal stenosis. Osteophytic ridging results in moderate to severe bilateral neural foraminal narrowing. L5-S1: Spinal canal is decompressed well. No significant neural foraminal narrowing. IMPRESSION: 1. Postoperative changes include left-sided posterior instrumentation and interbody fusions at L3-L5 with laminectomies at L2-L5. 2. Interval progression of spondylotic changes, most notably at L1-L2 where there is now [id number] spinal canal stenosis. 3. Multilevel high-grade neural foraminal narrowing detailed above. Dictated by: Dictated on workstation # [id number]
--- NOTE | 2022-05-10 17:07 | Diagnostic Imaging Report ---
EXAMINATION: CT cervical spine without contrast. TECHNIQUE: Multiple contiguous axial images were obtained through the cervical spine without the use of intravenous contrast. Sagittal and coronal reformations through the cervical spine were then performed. All CT scans use one or more of the following dose optimizing techniques: automated exposure control, MA and/or KvP adjustment based on patient size and exam type or iterative reconstruction. HISTORY: Neck pain COMPARISON: 05/09/2022 FINDINGS: Vertebral body heights and alignment are normal. Surgical changes from C5 through C7 anterior fusion with fusion across the disc spaces. Disc spaces otherwise preserved. No acute fracture, dislocation, or destructive osseous process. No focal abnormality within the anterior T6 vertebral body to correspond to abnormality seen on prior MRI. Evaluation is somewhat limited at this location secondary to hardware. No significant facet hypertrophy. There is congenital nonunion of the posterior arch of C1. Central canal or neuroforaminal stenosis is better evaluated on MRI cervical spine of 05/09/2022. The paraspinous soft tissues are normal. The visualized thyroid gland is normal. The visualized lung apices are normal. IMPRESSION: 1. Surgical degenerative changes of the cervical spine without acute osseous abnormality. 2. No focal abnormality within the T6 vertebral body corresponding to the finding on prior MRI. Dictated on workstation # [id number]
--- NOTE | 2022-05-10 17:12 | Diagnostic Imaging Report ---
PROCEDURE: CT lumbar spine without contrast. TECHNIQUE: Multiple contiguous axial images were obtained through the lumbar spine without the use of intravenous contrast. Sagittal and coronal reformations were then performed. Auto Exposure Controls were utilized during the CT exam to meet ALARA standards for radiation dose reduction. INDICATION: Lumbar fusion. Low back pain. COMPARISON: MRI lumbar spine without contrast also performed today. FINDINGS: Grade 1 retrolisthesis of L4 and L5 and anterolisthesis of L3 on L4. Mild to moderate left apex lumbar curvature. Vertebral body heights are preserved. No fractures. Advanced degenerative endplate changes at L2-L3. Anterior interbody fusions and left-sided posterior instrumentation at L3-L5. Hardware components are intact. No evidence of loosening. There are also laminectomies at L2-L5. High-grade spinal canal stenosis at L1-L2 is better demonstrated on the comparison MRI. High-grade neural foraminal narrowing bilaterally is greatest at L4-L5. Visualized pelvis is intact. No acute findings in the visualized paravertebral soft tissues. IMPRESSION: 1. Anterior interbody fusion and left-sided posterior instrumentation at L3-L5. Laminectomies at L2-L5. No evidence of hardware failure. 2. No acute CT findings in the lumbar spine. 3. High-grade spinal canal stenosis at L1-L2 is better demonstrated on the comparison MRI also performed today. High-grade neural foraminal narrowing bilaterally is greatest at L4-L5. Dictated by: Dictated on workstation # [id number]
== END ==
LOC: RAD 12:49
PROVIDERS: ATTEND Orthopaedic Surgery Orthopaedic Surgery of the Spine
DX: M47.816 Spondylosis without myelopathy or radiculopathy, lumbar region (principal); M48.061 Spinal stenosis, lumbar region without neurogenic claudication; M48.07 Spinal stenosis, lumbosacral region; M25.78 Osteophyte, vertebrae; Z98.1 Arthrodesis status
CPT/HCPCS: 72125; 72131; 72148

== ENCOUNTER 2023-06-07 12:58 | Emergency (ER) | payer MEDICARE, OTHER ==
[~2023-06-07] VITALS: Ht 177 cm; Wt 95.0 kg
[2023-06-07 13:07] VITALS: BP 147/86
[2023-06-07] MEDS ORDERED: MAGN296S68 PO (13:21)
--- NOTE | 2023-06-07 13:23 | ED GI ---
General Chief Complaint: Abdominal/GI Problems Stated Complaint: CONSTIPATION | INCISION ON BACK Nursing Triage Note: pt reports constipation, states he has not had a bm since 05/28 Source of Information: Patient Exam Limitations: No Limitations History of Present Illness Date Seen by Provider: Jun 07, 2023 Time Seen by Provider: 13:05 Initial Comments 68-year-old male presents to the emergency department today with concerns for constipation. He had a spine surgery on 28 May and states he has not had a bowel movement since that time. When asked further he has had very small amounts of stool pass but has not been able to have a full bowel movement. He complains of abdominal distention without pain. No nausea or vomiting. No fevers or chills he is concerned about drainage from his incision site. Home health saw him the other day and sent a culture of the fluid draining. All other systems reviewed and negative except documented per HPI. Voice recognition software was used to help create this chart Allergies and Home Medications Allergies Coded Allergies: No Known Drug Allergies (Unverified , 12/31/11) Patient Home Medication List Home Medication List Reviewed: Yes Alprazolam (Xanax) 0.5 Mg Tablet, 1 TAB PO HS PRN, (Reported) Entered as Reported by: RHINA GONZALEZ on 02/07/12 0935 Cholecalciferol (Vitamin D3) (Vitamin D3) 2,000 Unit Capsule, 5,000 UNIT PO DAILY, (Reported) Entered as Reported by: RHINA GONZALEZ on 02/07/12 0936 Ciprofloxacin HCl (Cipro) 500 Mg Tablet, 500 MG PO BID Prescribed by: ABILIO DURANT on 11/29/13 1402 Clindamycin HCl (Clindamycin HCl) 300 Mg Capsule, 300 MG PO QID Prescribed by: SARAN OCONNELL on 03/24/222115 Doxycycline Hyclate (Doxycycline Hyclate) 100 Mg Capsule, 100 MG PO BID WITH MEALS Prescribed by: SUZI ROD on 03/23/18 1749 Levofloxacin (Levofloxacin) 750 Mg Tablet, 750 MG PO DAILY Prescribed by: SARAN OCONNELL on 03/24/222115 Lisinopril (Prinivil) 10 Mg Tablet, 10 MG PO BID, (Reported) Entered as Reported by: TIFFANY RODRIGUEZ on 12/31/11 0719 Magnesium Citrate (Magnesium Citrate) 296 Ml Solution, 296 ML PO ONCE Prescribed by: IMTIAZ CORTES MD on 06/07/23 1321 Meloxicam (Meloxicam) 15 Mg Tablet, 1 EACH PO DAILY PRN, (Reported) Entered as Reported by: RHINA GONZALEZ on 02/07/12 09 Thyroid (Thyroid ([place])) 60 Mg Tablet, 30 MG PO DAILY, (Reported) Entered as Reported by: RHINA GONZALEZ on 02/07/12 0935 Review of Systems Review of Systems Constitutional: see HPI Past Yuzoyvg-[id number]-Bjyjar Hx Patient Social History Tobacco Use?: No Use of E-Cig and/or Vaping dev: No Substance use?: No Alcohol Use?: No Pt feels they are or have been: No Immunizations Up To Date Tetanus Booster (TDap): Unknown Seasonal Allergies Seasonal Allergies: No Past Medical History Surgery/Hospitalization HX: htn, bph, back sx Surgeries: Yes (BACK SURGERY) Respiratory: No Cardiac: Yes Hypertension Neurological: No Genitourinary: No Gastrointestinal: No Musculoskeletal: Yes Chronic Back Pain, Spasms Endocrine: No Cancer: No Psychosocial: Yes Anxiety Integumentary: No Blood Disorders: No Physical Exam Vital Signs Vital Signs - First Documented 06/07/23 13:07 Temp 36.6 Pulse 74 Resp 20 B/P (MAP) 147/86 (106) Pulse Ox 98 O2 Delivery Room Air Capillary Refill : Less Than 3 Seconds Height/Weight/BMI Height: 5'9.00" Weight: 212lbs. 0.0oz. 96.526171gq; 30.00 BMI Method:Stated General Appearance: WD/WN, no apparent distress HEENT: normal ENT inspection Neck: non-tender, supple, normal inspection Respiratory: chest non-tender, lungs clear, normal breath sounds, no respiratory distress, no accessory muscle use Cardiovascular: regular rate, rhythm, no murmur Gastrointestinal: soft, other (No tenderness. Mildly hypoactive bowel sounds. Mildly distended.) Back: other (Midline lumbar thoracic incision with serosanguineous drainage, moderate amount no purulence. Incision appears to be healing well without evidence for infection.) Progress/Results/Core Measures Results/Orders Vital Signs/I&O 06/07/23 13:07 Temp 36.6 Pulse 74 Resp 20 B/P (MAP) 147/86 (106) Pulse Ox 98 O2 Delivery Room Air Blood Pressure Mean: 106 Departure Communication (Admissions) Patient likely with mild fecal impaction. Discussed treatment options we opted for home magnesium citrate trial. Did advise he likely have 1 large bowel movement that was painful and could contain some blood if he had a tear. He states understanding. He is comfortable agreeable to current plan of care. He will return to care should this not work or with severe pain, discomfort Impression Primary Impression: Constipation Qualified Codes: K59.00 - Constipation, unspecified Additional Impression: Problem involving surgical incision Disposition: HOME, SELF-CARE Condition: Stable Departure-Patient Inst. Referrals: NO,LOCAL PHYSICIAN (PCP/Family) Primary Care Physician Patient Instructions: Constipation, Adult (DC) Add. Discharge Instructions: Take half the bottle of magnesium citrate when you get home. If you do not have a bowel movement in 1 hour take the other half. Increase your fluids at home. Use MiraLAX, 1 capful twice a day as a stool softener. Continue Colace. Return to the emergency department for any vomiting. Your incision and drainage looks inflammatory to me and does not look infected. Follow-up with the cultures performed by [facility]. Call your surgeon for any concerns with the drainage but return to the emergency department immediately if you have any foul-smelling drainage, fevers or drainage looks like pus. Follow-up with primary doctor for any nonemergent needs. All discharge instructions reviewed with patient and/or family. Voiced understanding. Scripts Magnesium Citrate (Magnesium Citrate) 296 Ml Solution 296 ML PO ONCE for 1 Day, #1 EA Prov: IMTIAZ CORTES DO 06/07/23 IMTIAZ CORTES DO Jun 07, 2023 13:23
== END 2023-06-07 13:42 | disposition home or self-care (01) ==
LOC: EDUNIT# 12:58 → ER 13:00
DX: K59.00 Constipation, unspecified (principal); T81.31XA Disruption of external operation (surgical) wound, not elsewhere classified, initial encounter
CPT/HCPCS: 99283

== ENCOUNTER → 2023-07-06 | Outpatient (CLI) | payer MEDICARE, OTHER ==
[~2023-07-06] MED LIST changes: +MAGN296S68 PO
== END ==
LOC: LABNPT 12:24
PROVIDERS: ATTEND Family Medicine
DX: Z01.89 Encounter for other specified special examinations (principal)
CPT/HCPCS: 87324; 87449

== ENCOUNTER → 2023-08-12 | Outpatient (CLI) | payer MEDICARE, OTHER ==
[2023-08-12 13:37] LABS: BASOPHILS # (AUTO) 0.1 10^3/uL (0.0-0.1); BASOPHILS % (AUTO) 1 % (0-10); EOSINOPHILS # (AUTO) 0.3 10^3/uL (0.0-0.3); EOSINOPHILS % (AUTO) 4 % (0-10); HEMATOCRIT 42 % (40-54); HEMOGLOBIN 13.5 g/dL (13.3-17.7); LYMPHOCYTES # (AUTO) 1.4 10^3/uL (1.0-4.0); LYMPHOCYTES % (AUTO) 19 % (12-44); MEAN CORPUSCULAR HEMOGLOBIN 29 pg (25-34); MEAN CORPUSCULAR HGB CONC 32 g/dL (32-36); MEAN CORPUSCULAR VOLUME 90 fL (80-99); MEAN PLATELET VOLUME 9.5 fL (9.0-12.2); MONOCYTES # (AUTO) 0.6 10^3/uL (0.0-1.0); MONOCYTES % (AUTO) 8 % (0-12); NEUTROPHILS % (AUTO) 68 % (42-75); PLATELET COUNT 168 10^3/uL (130-400); WHITE BLOOD COUNT 7.3 10^3/uL (4.3-11.0)
[2023-08-12 13:49] LABS: ALBUMIN 4.1 GM/DL (3.2-4.5); POTASSIUM 4.1 MMOL/L (3.6-5.0)
[2023-08-12 13:50] LABS: CALCIUM 9.3 MG/DL (8.5-10.1)
[2023-08-12 13:52] LABS: TOTAL PROTEIN 6.8 GM/DL (6.4-8.2)
[2023-08-12 13:53] LABS: BILIRUBIN,TOTAL 0.4 MG/DL (0.1-1.0)
[2023-08-12 13:55] LABS: CREATININE SERUM 1.08 MG/DL (0.60-1.30)
[2023-08-12 14:13] LABS: ERYTHROCYTE SEDIMENTATION RATE 3 MM/HR (0-30)
== END ==
LOC: WOUNDCARE 12:17
PROVIDERS: ATTEND Family Medicine
DX: I96 Gangrene, not elsewhere classified (principal); T81.31XA Disruption of external operation (surgical) wound, not elsewhere classified, initial encounter; M96.842 Postprocedural seroma of a musculoskeletal structure following a musculoskeletal system procedure; T81.41XA Infection following a procedure, superficial incisional surgical site, initial encounter; F17.298 Nicotine dependence, other tobacco product, with other nicotine-induced disorders
CPT/HCPCS: 11042; 80053; 84134; 85025; 85652; 86141; A6260; G0463; 36415